=== PATIENT | female | born 1955 | race Caucasian/White ===

== ENCOUNTER → 2018-02-15 | Outpatient (CLI) | payer OTHER ==
[~2018-02-15] MED LIST: ATIVAN1 MG PO; COMPAZINE10 MG PO; CRESTOR20 MG PO; DECADRON4 MG PO; ERGOCALCIF50000 UNIT PO; IBUPROFEN 200200 M1 PO; MAGIC MOUTHWASH SW&SWALLOW; MEGESTROL ACETA40 MG PO; MINOCIN100 MG PO; NORCO 5-325 TA1 EACH PO; POTASSIUM20 PO; PROTONIX40 M4 PO; SYNTHROID125 MC1 PO; TRAZODONE HCL100 MG PO; VENLAFAXINE HC150 MG PO; VITAMIN D2000 UNIT PO; ZOFRAN ODT4 MG
--- NOTE | 2018-02-22 15:11 | PATH ---
[address] [address] PATHOLOGY RPT PROCEDURE Name: LORNA MALCOLM Room: [facility]#: [id number] Admission: 02/15/18 Date of : 55 Discharge: Report #: [id number] Path Case #: [id number] [facility] Accession Number: [id number] . 01 Material submitted: . LEFT BREAST TISSUE 2:00, 6 CMFN . 01 Clinical history: . 1.6 x 1.9 x 1.8 cm, 200 6 cm from nipple . 02 Diagnosis: Left breast tissue, 2:00, 6 cm from nipple, image guided core biopsies: - DUCTAL ADENOCARCINOMA, HIGH-GRADE, SPANNING 9 MM, WITH SUGGESTION OF MATRIX PRODUCTION (METAPLASTIC CARCINOMA). (SEE COMMENT) . Specimen type: Image guided core biopsies Tumor site: Left breast, 2:00, 6 cm from nipple Tumor quantitation: Approximately 90% of submitted tissues Histologic type: Ductal adenocarcinoma with suggestion of matrix production Histologic grade: High-grade (III of III) Tubules, nuclei and mitoses: 3, 3, 3 LVSI: Not identified Microcalcifications: Not identified Markers: Breast tumor profile pending Block: A3 [facility]02/18/2018 . 02 Comment: The tumor shows large aggregates of malignant cells present singly and in nests and frequently within a wispy, morel myxoid-appearing background. Non-neoplastic epithelial tissues do not show DCIS or LCIS and is associated with a prominent lymphoplasmacytic infiltrate. Properly controlled Alcian blue at pH 2.5 is performed on A2 and shows positivity in the myxoid material although positivity is also noted in non-neoplastic stroma and it suggests the presence of sialomucin or chondroitin sulfate. Properly-controlled immunohistochemical stains also performed on A2 highlight the neoplastic cells as follows, suggesting matrix production: . Keratin AE1/AE3: Positive E-cadherin: Positive Keratin Axel: Positive S100: Predominantly cytoplasmic and nuclear positive . Breast tumor profile studies are pending on A3 and will be the subject of an addendum report. . Preliminary findings relayed to Megan Ortega ([facility] Breast [place]igator) [place] [address] PATHOLOGY RPT PROCEDURE Name: LORNA MALCOLM Room: [facility] SHAHNAZ [place]#: [id number] Admission: 02/15/18 Date of : 55 Discharge: Report #: [id number] Path Case #: [id number] approximately 14:55 on 02/17/2018. Reviewed with Dr. Gomez Wei who agrees with the diagnosis. (ANDREINA:ananda 02/18/2018) . 02 Addendum: . Special studies report received from [facility], [address] [place] [address], [address], [place], [address], on case [id number], labeled with their number [id number], dated 02/22/2018. . Predictive/Prognostic Marker Analysis . Specimen 1: Lt Breast Specimen ID#: [id number] Absent/Negative Percent: 0 Intensity: Not Applicable Analysis Type: Computer Assisted Comment: Internal controls are present. . MT Absent/Negative Percent: 0 Intensity: Not Applicable Analysis Type: Computer Assisted Comment: Internal controls are present. . HER2 Not Over-Expressed Score: 1+ Analysis Type: Computer Assisted . KI67 High Proliferation Percent: 43.0% Analysis Type: Computer Assisted . Fixation Information Type of Fixative: 10% Neutral Buffered Formalin Time to Fixation: Immediate Duration of Fixation: Not Given . Codes: Reported CPT Code(s): 82635-71 X 4 . at [facility] Bonif[place] [address] PATHOLOGY RPT PROCEDURE Name: LORNA MALCOLM [id number] Admission: 02/15/18 Date of : 55 Discharge: Report #: [id number] Path Case #: [id number] Methodology The HER2 Receptor protein expression is analyzed using the [place] HER2 rabbit monoclonal antibody (clone [id number]). This assay is used for diagnostic determination of the HER2 protein over-expression in paraffin embedded, formalin fixed breast cancer tissue on the [place] Benchmark. The specimen is processed using a polymer detection system. The membrane staining of the tumor is determined either by manual score or image analysis. This antibody is intended for in vitro diagnostic use. The score is reported as per package insert; 0, 1+, 2+, and 3+. This test is used for clinical purposes. . A rabbit monoclonal antibody (clone SP1) that recognized the Estrogen Receptor is used to perform immunohistochemistry on routinely fixed (formalin) paraffin embedded tissue on the [place] Benchmark. The specimen is processed using a polymer detection system. The percentage of stained tumor nuclei is determined either manually or by image analysis. This test is intended for in vitro diagnostic use. This test is used for clinical purposes. . A rabbit monoclonal antibody (clone 1E2) that recognized the Progesterone Receptor is used to perform immunohistochemistry on routinely fixed (formalin) paraffin embedded tissue on the [place] Benchmark. The specimen is processed using a polymer detection system. The percentage of stained tumor nuclei is determined either manually or by image analysis. This test is intended for in vitro diagnostic use. This test is used for clinical purposes. . A rabbit monoclonal antibody (clone 30-9) that recognized Ki67 is used to perform immunohistochemistry on routinely fixed (formalin) paraffin embedded tissue on the [place] Benchmark. The specimen is processed using a polymer detection system. The percentage of stained tumor nuclei is determined either manually or by image analysis. This test is intended for in vitro diagnostic use. This test is used for clinical purposes. . Intended Use (when used as Prognostic/Predictive Markers): This antibody is intended for in vitro diagnostic (IVD) use. Estrogen Receptor (ER) (SP1) is a rabbit monoclonal antibody (IgG) that is intended for the qualitative detection of estrogen receptor (ER) antigen in sections of formalin-fixed, paraffin-embedded tissue. ER is a rabbit monoclonal antibody that recognizes human estrogen receptor alpha. . This antibody is intended for in vitro diagnostic (IVD) use. Progesterone Receptor (MT) (1E2) is a rabbit monoclonal antibody (IgG) that is intended for the qualitative detection of progesterone receptor (MT) antigen in sections of formalin fixed, paraffin embedded tissue. MT is a rabbit monoclonal antibody that recognizes the A and B forms of the human progesterone receptor. . This antibody is intended for in vitro diagnostic (IVD) use. HER2 (4B5) [place] [address] PATHOLOGY RPT PROCEDURE Name: LORNA MALCOLM Room: [facility]#: [id number] Admission: 02/15/18 Date of : 55 Discharge: Report #: [id number] Path Case #: [id number] a rabbit monoclonal antibody intended for the semi-quantitative detection of HER2 antigen in sections of formalin-fixed, paraffin embedded normal and neoplastic tissue. The HER2 protein is expressed as a level detectable by immunohistochemistry in up to 20 percent of adenocarcinomas from various sites. . This antibody is intended for in vitro diagnostic (IVD) use. Ki-67 (30-9) is a rabbit monoclonal antibody (IgG) directed against C-terminal portion of Ki-67 antigen. Staining for Ki-67 can be used to aid in assessing the proliferative activity of normal and neoplastic tissue. Ki-67 is a nuclear protein expressed in proliferating cells. During the cell cycle, the Ki-67 antigen is present in the G1, S, G2 and M phase but is absent in the G0 (quiescent phase). . . Disclaimer [facility] is a business unit of [employer] a wholly-owned subsidiary of [employer]. . Technical component performed by [facility]. at [address] [address] Torres Ni MD . Professional component performed by [facility] at [address] [place] [address] [address] [address] . Any image(s) that accompany this report is/are a account service representative image(s) only and should not be used to render a diagnosis. . HER2 testing at [employer] is performed in compliance with the 2013 updated ASCO/CAP Clinical Practice Guidelines and Recommendations for HER2 testing in Breast Cancer. If the result is EQUIVOCAL (2+), it must be confirmed by an alternative assay such as FISH or Dual SYL. REF: Gracy CREWS, et al. Recommendations for human epidermal growth factor receptor 2 testing in breast cancer: [place] Society of Clinical Oncology/College of [place] pathologists Clinical Practice Guideline Update. J Clin Oncol. 2013 May 13;31(31):4568-2798. . HER2 and ER/MT ASCO/CAP guidelines require fixation in neutral buffered formalin for a minimum of 6 and a maximum of 72 hours. Fixation times less than 6 hours may not adequately preserve cell proteins. Fixation times longer than 72 hours may cause excess cross-linking of proteins reducing the antigen available for staining. Either scenario can cause reduced staining; hence false negative results are possible and should be considered for these situations if the HER2 IHC score is less than 3+ or ER or MT is negative (no staining or <1% positive). It is recommended that specimens fixed longer than 72 hours with HER2 IHC scores less than 3+ be confirmed by HER2 FISH or Dual SYL. The time from biopsy/excision to [facility] [address] [place] [address] PATHOLOGY RPT PROCEDURE Name: LORNA MALCOLM Room: [facility] [place]#: [id number] Admission: 02/15/18 Date of : 55 Discharge: Report #: [id number] Path Case #: [id number] fixation in formalin (cold ischemic time) must be less than 1 hour. Time to fixation (cold ischemic time) greater than 1 hour should be interpreted with caution. HER2 testing, mainly HER2 by FISH, is particularly vulnerable since excessive cold ischemic time results in preferential loss of HER2 probe signals that may lead to false negative results. . The immunohistochemistry tests performed at [employer] were validated on tissue fixed in 10% neutral buffered formalin. The performance characteristics of the tests performed on tissue processed in other fixatives is not known. . SCORE STAINING PATTERN IN TUMOR CELLS INTERPRETATION RESULTS 0 No staining observed or incomplete, faint membrane staining in less than or equal to 10% of tumor cells. Negative 1+ Incomplete, faint membrane staining in greater than 10% of tumor cells. Negative 2+ Incomplete and/or weak/moderate circumferential membrane staining . in greater than 10% of the invasive tumor cells or complete, . circumferential, intense alternative assay staining in less than or equal to 10% of invasive tumor cells. Equivocal* *Must be confirmed by alternative assay (IHC/FISH/Dual SYL) 3+ Intense, complete membrane staining in greater than 10% of tumor cells. Positive . A complete copy of the report is on file. . Professional services performed by [facility] at [address], [place] [address]. Technical services performed by [employer]. at [address], [place] [address]. . (AMJ 02/22/2018) . AZJ/02/22/2018 Addendum Electronically Signed by Alban Canchola MD, Pathologist . 02 Electronically signed: . Alban Canchola MD, Pathologist NPI- [id number] . [address] [address] PATHOLOGY RPT PROCEDURE Name: LORNA MALCOLM Room: [facility].#: [id number] Admission: 02/15/18 Date of : 55 Discharge: Report #: [id number] Path Case #: [id number] Gross description: . Received in formalin labeled "Lorna Malcolm, left breast BX 200 6 cm FN," is a 1.4 x 0.8 x 0.2 cm aggregate of yellow-morel fibrofatty tissue cores. The specimen is submitted entirely in cassettes A1 through A3. The cold ischemic time is less than 1 minute. The total formalin fixation time is 36 hours and 26 minutes. (DAC; 02/16/2018) XDC/XDC . 02 Pathologist provided ICD-10: C50.912 . 02 CPT . 324620, F48697, I03106, 664622 Performed at: 01 [facility] [address] [place] [address] [address], [place], [place] [id number] MD Jan Stephenson MD Phone: [phone] Performed at: 02 [facility] [address] [place], [place] [id number] MD Alban Canchola MD Phone: [phone]
== END ==
LOC: M.ULTRA 07:44
DX: C50.912 Malignant neoplasm of unspecified site of left female breast (principal); Z88.8 Allergy status to other drugs, medicaments and biological substances; Z79.899 Other long term (current) drug therapy

== ENCOUNTER → 2018-03-01 | Outpatient (CLI) | payer OTHER ==
--- NOTE | 2018-03-01 14:24 | 2DMMODE ---
[place] [address] 2 D/M-MODE ECHOCARDIOGRAM Name: LORNA MALCOLM Room: [facility]#: [id number] Admission: 03/01/18 Attend Phys: Ronit Campbell MD Discharge: Date of : 55 Date of Service: 03/01/18 1423 Report #: [id number] THIS REPORT FOR: //name// APPROVED REPORT Study performed: 03/01/2018 10:18:49 EXAM: Comprehensive 2D, Doppler, and color-flow Echocardiogram Patient Location: Out-Patient Status: routine BSA: 1.85 HR: 82 bpm BP: 180/86 mmHg Rhythm: NSR Other Information Study Quality: Good Indications Pre-Chemo Breast cancer 2D Dimensions LVEF(%): 70.63 (>50%) IVSd: 11.47 (7-11mm) LVOT Diam: 19.85 (18-24mm) LVDd: 41.61 mm PWd: 9.19 (7-11mm) Ascending Ao: 28.42 (22-36mm) LVDs: 25.11 (25-40mm) Aortic Root: 30.03 mm Singh's LVEF: 70.63 % Volumes Left Atrial Volume (Systole) LA ESV Index: 12.00 mL/m2 Aortic Valve AoV Peak Christian.: 1.51 m/s AO Peak Gr.: 9.11 mmHg LVOT Max P.66 mmHg AO Mean Gr.: 4.03 mmHg LVOT Mean P.83 mmHg LVOT Max V: 1.29 m/s AO V2 VTI: 22.64 cm LVOT Mean V: 0.75 m/s ARTURO (VTI): 3.22 cm2 LVOT V1 VTI: 23.55 [place] [address] 2 D/M-MODE ECHOCARDIOGRAM Name: LORNA MALCOLM Room: [facility]#: [id number] Admission: 03/01/18 Attend Phys: Ronit Campbell MD Discharge: Date of : 55 Date of Service: 03/01/18 1423 Report #: [id number] E/A Ratio: 0.75 MV Decel. Time: 302.50 ms MV E Max Christian.: 0.53 m/s MV PHT: 87.73 ms MVA (PHT): 2.51 cm2 TDI E/Lateral E': 6.63 E/Medial E': 5.89 Medial E' Christian.: 0.09 m/s Lateral E' Christian.: 0.08 m/s Pulmonary Valve PV Peak Christian.: 1.28 m/s PV Peak Gr.: 6.59 mmHg Left Ventricle The left ventricle is normal size. There is normal LV segmental wall motion. There is normal left ventricular wall thickness. Left ventricular systolic function is normal. The left ventricular ejection fraction is within the normal range. LVEF is 65%. Grade I - abnormal relaxation pattern. Right Ventricle The right ventricle is normal size. The right ventricular systolic function is normal. Atria The left atrium size is normal. The right atrium size is normal. Aortic Valve Mild aortic valve sclerosis. No aortic regurgitation is present. There is no aortic valvular stenosis. Mitral Valve The mitral valve is normal in structure. Trace mitral regurgitation. No evidence of mitral valve stenosis. Tricuspid Valve The tricuspid valve is normal in structure. Trace tricuspid regurgitation. Unable to assess PA pressure. Pulmonic Valve The pulmonary valve is normal in structure. There is no pulmonic valvular regurgitation[place] [address] 2 D/M-MODE ECHOCARDIOGRAM Name: LORNA MALCOLM Room: [facility]#: [id number] Admission: 03/01/18 Attend Phys: Ronit Campbell MD Discharge: Date of : 55 Date of Service: 03/01/18 1423 Report #: [id number] The aortic root is normal in size. IVC is normal in size and collapses with >50% inspiration Pericardium There is no pericardial effusion. <Conclusion> The left ventricle is normal size. There is normal left ventricular wall thickness. Left ventricular systolic function is normal. The left ventricular ejection fraction is within the normal range. LVEF is 65%. The right ventricle is normal size. The left atrium size is normal. Mild aortic valve sclerosis. No aortic regurgitation is present. There is no aortic valvular stenosis. The mitral valve is normal in structure. IVC is normal in size and collapses with >50% inspiration There is no pericardial effusion. There is normal LV segmental wall motion. Grade I - abnormal relaxation pattern. <ELECTRONICALLY SIGNED> By: Usman Carranza MD, FACC 03/01/18 1423 1423 1423 Usman Carranza MD, FACC /INF
== END ==
LOC: M.CRD 09:42 → M.LAB 13:30 → M.MRI 14:30
DX: Z51.11 Encounter for antineoplastic chemotherapy (principal); C50.411 Malignant neoplasm of upper-outer quadrant of right female breast; C50.412 Malignant neoplasm of upper-outer quadrant of left female breast; I35.8 Other nonrheumatic aortic valve disorders

== ENCOUNTER → 2018-03-01 | Outpatient (CLI) | payer OTHER ==
[2018-03-01 14:27] LABS: CREATININE 1.2 mg/dL (0.6-1.3)
== END ==
LOC: M.LAB 10:00
PROVIDERS: Surgery
DX: C50.911 Malignant neoplasm of unspecified site of right female breast (principal); C50.912 Malignant neoplasm of unspecified site of left female breast

== ENCOUNTER → 2018-03-03 | Day surgery (SDC) | payer OTHER ==
[2018-03-03 10:06] LABS: HEMATOCRIT 40.8 % (37.0-47.0); HEMOGLOBIN 13.6 gm/dL (12.0-15.0); MCH 29.8 pg (26.0-34.0); MCHC 33.4 g/dL (28.0-37.0); MCV 89.3 fL (80.0-100.0); RBC 4.57 mil/uL (4.20-5.00); RDW-CV 13.3 % (10.5-14.5); WBC 6.2 thou/uL (4.0-11.0)
[2018-03-03 10:14] LABS: CALCIUM 8.4 mg/dL (8.5-10.1); CREATININE 1.1 mg/dL (0.6-1.3); POTASSIUM 4.4 mmol/L (3.5-5.1)
--- NOTE | 2018-03-04 17:30 | EKG ---
[place] [address] ELECTROCARDIOGRAM REPORT Name: LORNA MALCOLM Room: [facility]#: [id number] Admission: 03/03/18 Attend Phys: Ronit Campbell MD Discharge: Date of : 55 Report #: [id number] THIS REPORT FOR: //name// [facility] Test Date: 2018-03-03 Test Time: 09:51:32 Pat Name: LORNA MALCOLM Department: Room: Gender: F Senior Product Consultant: : 1955 Requested By: Ronit Campbell Order Number: [id number] Reading MD: Rai Mae Measurements Intervals [place] Rate: 79 P: 69 TN: 126 QRS: -50 QRSD: 94 T: 80 QT: 389 QTc: 447 Interpretive Statements Sinus rhythm Left anterior fascicular block Abnormal R-wave progression, late transition Borderline T abnormalities, anterior leads No previous ECG available for comparison Electronically Signed On 03-04-2018 17:29:53 CDT by Rai Mae [email or web address] <ELECTRONICALLY SIGNED> By: Rai Mae MD, [facility] 03/04/18 [id number] Rai Mae MD, [facility] /EPI
--- NOTE | 2018-03-17 16:21 | OP ---
[facility] [address] [place] [address] OPERATIVE REPORT Name: LORNA MALCOLM Room: [facility]#: [id number] Admission: 03/03/18 Attend Phys: Ronit Campbell MD Discharge: Date of : 55 Report #: [id number] THIS REPORT FOR: //name// CC: Maritza Campbell DATE OF SERVICE: 03/03/2018 PREOPERATIVE DIAGNOSIS: Left breast cancer. POSTOPERATIVE DIAGNOSIS: Left breast cancer. PROCEDURE: Right subclavian vein MediPort placement with fluoroscopic guidance. SURGEON: Ronit Campbell M.D. BUFF WHEEL FABRICATOR: TIM Lazar. COMPLICATIONS: None. FINDINGS: Tip of the catheter in the SVC. Bidirectional flow in the right subclavian vein. 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 The decision after visiting with Medical Oncology was that we should proceed with neoadjuvant chemotherapy. Risks and benefits for MediPort had been discussed with patient at her initial visit. She voiced understanding and agreed to proceed. DESCRIPTION OF PROCEDURE: The patient was brought to the operating room after informed consent had been obtained. She was placed under general anesthesia in the supine position, with both arms tucked and a shoulder roll placed in slight Trendelenburg position. Bilateral chest and neck were then prepped and draped in normal sterile manner. The right subclavian vein was accessed on the first attempt with the needle. The guidewire was passed. Fluoroscopy was then used to confirm placement in the SVC. Appropriate skin anesthesia with 0.5% Marcaine plain was then used to anesthetize the proposed pocket site. A skin incision was made in this area with a knife. This was deepened in the subcutaneous tissues using the Bovie electrocautery. Blunt dissection was used to create a pocket of adequate size to fit the MediPort device. Once this pocket was created under Seldinger technique, the dilator and guidewire were then passed over the wire under direct fluoroscopic visualization. The guidewire and dilator were then removed. The MediPort tubing was then introduced through the sheath. The break-away sheath was then removed. The [place] [address] OPERATIVE REPORT Name: LORNA MALCOLM Room: [facility]#: [id number] Admission: 03/03/18 Attend Phys: Ronit Campbell MD Discharge: Date of : 55 Report #: [id number] appropriate length. It was then affixed to the MediPort device and placed in the created pocket. The port was then aspirated and flushed with injectable saline without difficulty. The deep dermal layers were then closed with interrupted 3-0 Vicryl suture. Skin was closed with 4-0 Monocryl in a subcuticular manner. The accessing apparatus was then inserted. The port and tubing were then locked with approximately 7 mL of the heparin solution. Dermabond was applied to the incision and sterile dressings were used to cover the port. The patient tolerated the procedure well. Post-procedure chest x-ray will be performed in recovery room. <ELECTRONICALLY SIGNED> By: Ronit Campbell MD 03/17/18 1621 1113 [id number] Campbell MD /nt
== END | disposition home or self-care (01) ==
LOC: M.SUR 07:03
PROVIDERS: Surgery
DX: Z45.2 Encounter for adjustment and management of vascular access device (principal); C50.412 Malignant neoplasm of upper-outer quadrant of left female breast; E78.5 Hyperlipidemia, unspecified; E03.9 Hypothyroidism, unspecified; F41.9 Anxiety disorder, unspecified; F32.9 Major depressive disorder, single episode, unspecified; Z86.718 Personal history of other venous thrombosis and embolism; Z79.01 Long term (current) use of anticoagulants; Z79.899 Other long term (current) drug therapy; Z79.891 Long term (current) use of opiate analgesic; Z88.8 Allergy status to other drugs, medicaments and biological substances; Z82.49 Family history of ischemic heart disease and other diseases of the circulatory system; Z80.1 Family history of malignant neoplasm of trachea, bronchus and lung; Z80.3 Family history of malignant neoplasm of breast

== ENCOUNTER → 2018-03-10 | Outpatient (CLI) | payer OTHER ==
--- NOTE | 2018-03-14 15:37 | CON ---
[address] [address] CONSULTATION Name: MALCOLMLORNA S Room: [facility]#: [id number] Admission: 03/10/18 Attend Phys: Oseas Son MD Discharge: Date of : 55 Report #: [id number] THIS REPORT FOR: //name// CC: Oseas Cano MD DATE OF SERVICE: 03/10/2018 [facility] REFERRING PHYSICIANS: Include Yrn Cano MD as well as Ronit Campbell MD and Maritza Goodwin MD. PRIMARY SITE AND HISTOPATHOLOGY: The patient is receiving chemotherapy under the guidance of Dr. Cano for a high-grade ductal adenocarcinoma with suggestion of metaplastic carcinoma. HISTORY OF PRESENT ILLNESS: The patient is a 63-year-old woman who palpated a lesion around the 2 o'clock position of the left breast. Prior to that, she did not have mammograms for about 5 years and she ultimately had a mammogram performed on 02/05/2018, which revealed a suspicious hypoechoic nodule in the left breast that measured 1.6 cm x 1.3 cm. It was at the 2 o'clock position. The patient underwent a biopsy of this area and it was a ductal adenocarcinoma. It was high-grade, and measured about 0.9 cm and that was consistent with metaplastic carcinoma. It was estrogen receptor negative, progesterone receptor negative, and HER-2/honorio negative. The patient went on to have an MRI of the breast on 03/01/2018, which revealed a normal right breast with no evidence of a malignancy involving the right breast. She had a mass in the upper outer portion of the left breast that measured 2.7 cm x 1.3 cm x 2.6 cm. The axillary regions were normal bilaterally. She denied having any bleeding from the nipple. Her medical oncologist, Dr. Cano, appeared to be treating her with dose-dense Adriamycin and Cytoxan. PAST MEDICAL HISTORY AND PAST SURGICAL HISTORY: The patient has had carpal tunnel surgery in 2003, and was treated for a fractured ankle in 2002. She also had a gastric bypass. She is hypothyroid. She has hypercholesterolemia and is also treated for depression. MEDICATIONS: Effexor, 125 mcg of levothyroxine per day, 20 mg of rosuvastatin per day, and 100 mg of trazodone per day. ALLERGIES: KEFLEX, WHICH CAUSES A RASH. OBSTETRICS/GYNECOLOGY: Menarche at age 12, menopause at age 49. She is 1, [address] [place] [address] CONSULTATION Name: LORNA MALCOLM Room: [facility] Katrina#: [id number] Admission: 03/10/18 Attend Phys: Oseas Son MD Discharge: Date of : 55 Report #: [id number] FAMILY HISTORY: Mother had breast cancer, maternal grandmother had breast cancer, maternal aunt had breast cancer. SOCIAL HISTORY: The patient is retired. She is . Ethanol: She drinks 2-3 glasses of alcohol containing drinks per week. Cigarettes: She smoked about a half pack of cigarettes for 2 years and quit smoking about 42 years ago. REVIEW OF SYSTEMS: GENERAL: The patient denied having any fevers or chills. SKIN: The patient denied having any color changes or itching. LYMPH NODES: She denied having enlarged or painful glands in the neck. ENDOCRINE: The patient had no complaints of increased thirst. HEMATOLOGY/IMMUNOLOGY: The patient denied having any anemia. MUSCULOSKELETAL: The patient has arthritis in her back. HEAD AND NECK: She has sinus headaches chronically, which she attributes to allergies. RESPIRATORY: She denied having shortness of breath. CARDIOVASCULAR: She denied having palpitations. GASTROINTESTINAL: She had nausea with chemotherapy and takes antiemetics for that issue NEUROLOGIC: She denied having any focal weakness. PHYSICAL EXAMINATION: With my nurse, Devi Quintero, present: VITAL SIGNS: Height 5 feet 2 inches, weight 180.4 pounds, blood pressure 123/74, pulse 97, oxygen saturation 98%, respirations 16. LYMPH NODES: The patient had no palpable cervical, supraclavicular or axillary lymphadenopathy. GENERAL: The patient was alert, oriented, and in no acute distress. EYES: Pupils were equal, round, reactive to light and accommodation. Extraocular movement were intact. HEART: Had a regular rate and rhythm without murmur. LUNGS: were clear to auscultation. BREASTS: Left breast had a firm area in the 2 o'clock position measuring about 1.5 cm. There were no other suspicious palpable masses in the left breast and no other suspicious palpable masses in the right breast. ABDOMEN: Not tender. Spleen was not palpable. Liver was at the costal margin. EXTREMITIES: No clubbing, cyanosis or edema. NEUROLOGIC: Cranial nerves II to XII were intact. Sensation was intact. She had 5/5 strength in her extremities. ASSESSMENT AND PLAN: The patient is, at this point, receiving neoadjuvant chemotherapy. I told her that6 her local treatment options would be breast conservation therapy, which would usually include a lumpectomy and lymph node sampling and radiation therapy, versus mastectomy. In the instance of mastectomy, radiation therapy would only be offered in patients that have high risk features for local recurrence such such as lymph nodes that are involved with cancer, positive surgical margins, and/or [place] [address] CONSULTATION Name: LORNA MALCOLM Room: [facility].#: [id number] Admission: 03/10/18 Attend Phys: Oseas Son MD Discharge: Date of : 55 Report #: [id number] larger than 5 cm. The efficacy of breast conservation therapy after neoadjuvant chemotherapy can be found in the article where Dr. Lovett was one of the authors. It was a retrospective review of 340 patients treated with neoadjuvant chemotherapy and breast conservation therapy and had acceptable low rates of local failure rates of about 5% in 5 years. So, the patient was given a copy of the radiation therapy consent form to take with her. She was asked to schedule a follow up appointment to see me in about 2 months, and, at that point we can see where she is with her systemic therapy and if she made decisions about what type of local treatment to pursue. In terms of long-term results with mastectomy versus breast conservation therapy, the NSABP B-06 study randomized patients with early breast cancer between total mastectomy versus lumpectomy alone versus lumpectomy and radiation therapy. At 20 years followup, there was no significant difference in terms of overall survival between the three treatment groups. In the breast conservation group, the addition of radiation therapy to lumpectomy reduced the local failure rate from 39% to 14%. As mentioned earlier, I asked the patient to follow up with me in about 2 months. Thank you for this consult. <ELECTRONICALLY SIGNED> By: Oseas Son MD 03/14/18 1537 1057 [id number] Son MD /nt
== END ==
LOC: M.RTH 04:26
DX: Z51.11 Encounter for antineoplastic chemotherapy (principal); Z85.3 Personal history of malignant neoplasm of breast

== ENCOUNTER → 2018-03-12 | Outpatient (CLI) | payer OTHER | LOC: M.ULTRA 08:03 | DX: C50.212 Malignant neoplasm of upper-inner quadrant of left female breast (principal); E03.9 Hypothyroidism, unspecified; E78.00 Pure hypercholesterolemia, unspecified ==

== ENCOUNTER → 2018-04-12 | Outpatient (CLI) | payer OTHER | LOC: M.ULTRA 09:13 | DX: C50.412 Malignant neoplasm of upper-outer quadrant of left female breast (principal); E03.9 Hypothyroidism, unspecified; E78.5 Hyperlipidemia, unspecified; Z17.1 Estrogen receptor negative status [ER-] ==

== ENCOUNTER 2018-04-19 11:28 | Inpatient (IN) | payer OTHER ==
[~2018-04-19] VITALS: Ht 157.5 cm; Wt 79.4 kg
[~2018-04-19 11:28] MED LIST changes: -ATIVAN1 MG PO; -COMPAZINE10 MG PO; -DECADRON4 MG PO; -ERGOCALCIF50000 UNIT PO; -IBUPROFEN 200200 M1 PO; -MAGIC MOUTHWASH SW&SWALLOW; -MEGESTROL ACETA40 MG PO; -POTASSIUM20 PO; -PROTONIX40 M4 PO; -ZOFRAN ODT4 MG
[2018-04-19 11:36] VITALS: BP 110/46
[2018-04-19 12:02] LABS: HEMATOCRIT 25.5 % (37.0-47.0); HEMOGLOBIN 8.7 gm/dL (12.0-15.0); MCH 29.1 pg (26.0-34.0); MCHC 34.3 g/dL (28.0-37.0); MCV 84.9 fL (80.0-100.0); MPV 7.2 fl. (7.2-11.1); NUCLEATED RBCS 0 /100WBC; PLATELET COUNT* 375 thou/uL (150-400); RDW-CV 12.7 % (10.5-14.5)
[2018-04-19 12:11] LABS: ANION GAP 7 mmol/L (7-16); APTT 27.5 Seconds (25.0-31.3); BUN 11 mg/dL (7-18); CHLORIDE 102 mmol/L (98-107); CO2 24 mmol/L (21-32); CREATININE 1.2 mg/dL (0.6-1.3); GLUCOSE 112 mg/dL (70-99); INR 1.2; PROTIME 11.8 Seconds (9.20-11.50); SODIUM 133 mmol/L (136-145)
[2018-04-19 12:15] LABS: POTASSIUM 2.9 mmol/L (3.5-5.1)
[2018-04-19 12:18] LABS: URINE BILIRUBIN NEGATIVE (Negative); URINE BLOOD 3+ (Negative); URINE CLARITY CLEAR; URINE COLOR YELLOW; URINE GLUCOSE-RANDOM NEGATIVE (Negative); URINE KETONES TRACE (Negative); URINE LEUKOCYTES-REFLEX NEGATIVE (Negative); URINE NITRITE-REFLEX NEGATIVE (Negative); URINE PROTEIN NEGATIVE (Negative); URINE SPECIFIC GRAVITY <= 1.005 (1.005-1.030); URINE UROBILINOGEN 0.2 E.U./dl (0.2-1.0)
[2018-04-19] MEDS ORDERED: DECADRON4 MG PO (12:18)
[2018-04-19] MEDS ORDERED: MAGIC MOUTHWASH SW&SWALLOW (12:19)
[2018-04-19] MEDS ORDERED: IBUPROFEN 200200 M1 PO (12:19)
[2018-04-19] MEDS ORDERED: ATIVAN1 MG PO (12:20)
[2018-04-19] MEDS ORDERED: POTASSIUM20 PO ×2 (12:20)
[2018-04-19 12:21] LABS: ALBUMIN 2.6 g/dL (3.4-5.0); ALKALINE PHOSPHATASE 98 U/L (46-116); NT-PRO BRAIN NAT PEPTIDE 563 pg/mL (<300); SGOT 17 U/L (15-37); SGPT 9 U/L (30-65); TOTAL BILIRUBIN 0.3 mg/dL (<0.1-1.0); TOTAL PROTEIN 6.2 g/dL (6.4-8.2); TROPONIN-I LEVEL <0.06 ng/mL (<0.06)
[2018-04-19] MEDS ORDERED: ERGOCALCIF50000 UNIT PO (12:21)
[2018-04-19] MEDS ORDERED: COMPAZINE10 MG PO (12:22)
[2018-04-19] MEDS ORDERED: ZOFRAN ODT4 MG (12:22)
[2018-04-19 12:25] LABS: BACTERIA-REFLEX 1-9 Few /HPF (None Seen); CASTS None Seen /LPF (None Seen); CRYSTALS None Seen /LPF (None Seen); SQUAMOUS 4-10 Moderate /LPF (0-3); URINE RBC >20 Many /HPF (0-2); URINE WBC-REFLEX 0-5 Rare /HPF (0-5)
[2018-04-19 12:44] LABS: ABSOLUTE BASOPHILS 0.4 thou/uL (0.0-0.2); ABSOLUTE LYMPHOCYTES 0.4 thou/uL (0.8-5.3); ABSOLUTE MONOCYTES 1.4 thou/uL (0.0-1.2); ABSOLUTE NEUTROPHILS 15.8 thou/uL (1.6-8.1); PLATELET ESTIMATE ADEQUATE
--- NOTE | 2018-04-19 14:05 | EKG ---
[place] [address] ELECTROCARDIOGRAM REPORT Name: LORNA MALCOLM Room: [place] [address] ADM IN .R.#: [id number] Admission: 04/19/18 Attend Phys: Consuelo Bello MD Discharge: Date of : 55 Report #: [id number] THIS REPORT FOR: //name// [facility] ED Test Date: 2018-04-19 Test Time: 11:44:01 Pat Name: LORNA MALCOLM Department: Room: [facility] Gender: F Director Loan: Rigo CORTES : 1955 Requested By: Michael Elizalde Order Number: [id number] MD: Shant Rapp Measurements Intervals [place] Rate: 96 P: 58 PA: 118 QRS: -44 QRSD: 91 T: 89 QT: 376 QTc: 476 Interpretive Statements Sinus rhythm Borderline short PA interval Left anterior fascicular block Low voltage, precordial leads Abnormal R-wave progression, early transition Minimal ST depression, lateral leads Baseline wander in lead(s) V2 Compared to ECG 03/03/2018 09:51:32 no change Electronically Signed On 04-19-2018 14:05:30 CDT by Shant Rapp [email or web address] <ELECTRONICALLY SIGNED> By: Shant Rapp MD, FACC 04/19/18 1405 1144 1144 Shant Rapp MD, [facility] /EPI
[2018-04-19 15:03] VITALS: BP 115/62
[2018-04-19 19:45] VITALS: BP 100/41
[2018-04-20] VITALS: BP 86/39
[2018-04-20 04:00] VITALS: BP 85/47
[2018-04-20 06:24] LABS: HEMOGLOBIN 7.2 gm/dL (12.0-15.0); MCH 29.5 pg (26.0-34.0); MCHC 34.1 g/dL (28.0-37.0); MCV 86.4 fL (80.0-100.0); RBC 2.44 mil/uL (4.20-5.00); RDW-CV 12.9 % (10.5-14.5); WBC 9.9 thou/uL (4.0-11.0)
[2018-04-20 07:39] LABS: CALCIUM 7.5 mg/dL (8.5-10.1); CREATININE 1.2 mg/dL (0.6-1.3); MAGNESIUM 1.6 mg/dL (1.8-2.4); POTASSIUM 3.2 mmol/L (3.5-5.1); TOTAL BILIRUBIN 0.2 mg/dL (<0.1-1.0)
[2018-04-20 08:00] VITALS: BP 87/36
[2018-04-20 12:00] VITALS: BP 80/46
[2018-04-20 16:00] VITALS: BP 119/54
[2018-04-20 17:59] LABS: HEMATOCRIT 20.7 % (37.0-47.0); MCHC 33.7 g/dL (28.0-37.0); MCV 86.2 fL (80.0-100.0); MPV 7.7 fl. (7.2-11.1); NUCLEATED RBCS 0 /100WBC; PLATELET COUNT* 319 thou/uL (150-400); RDW-CV 13.3 % (10.5-14.5); WBC 9.2 thou/uL (4.0-11.0)
[2018-04-20 18:24] LABS: % SATURATION 13 % (20-39); IRON 14 ug/dL (50-175)
[2018-04-20 18:39] LABS: ABSOLUTE LYMPHOCYTES 0.3 thou/uL (0.8-5.3); ABSOLUTE MONOCYTES 1.1 thou/uL (0.0-1.2); ABSOLUTE NEUTROPHILS 7.8 thou/uL (1.6-8.1)
[2018-04-20 18:40] LABS: OVALOCYTES Occasional; PLATELET ESTIMATE ADEQUATE
[2018-04-20 18:41] LABS: ANISOCYTOSIS Occasional
[2018-04-20 19:35] VITALS: BP 103/52
[2018-04-20 20:16] LABS: INFLUENZA A ANTIGEN None Detected (None Detect); INFLUENZA B ANTIGEN None Detected (None Detect)
[2018-04-21 00:50] VITALS: BP 121/54
[2018-04-21 02:07] LABS: ABSOLUTE LYMPHOCYTES 0.5 thou/uL (0.8-5.3); ABSOLUTE MONOCYTES 1.7 thou/uL (0.0-1.2); ABSOLUTE NEUTROPHILS 6.3 thou/uL (1.6-8.1); BASOPHILS 0.6 %; EOSINOPHILS 0.2 %; HEMATOCRIT 21.2 % (37.0-47.0); HEMOGLOBIN 7.1 gm/dL (12.0-15.0); LYMPHOCYTES 5.4 %; MCH 28.9 pg (26.0-34.0); MCHC 33.5 g/dL (28.0-37.0); MCV 86.1 fL (80.0-100.0); MONOCYTES 19.6 %; MPV 7.9 fl. (7.2-11.1); NUCLEATED RBCS 0 /100WBC; PLATELET COUNT* 324 thou/uL (150-400); POLYS 74.2 %; RBC 2.46 mil/uL (4.20-5.00); RDW-CV 13.2 % (10.5-14.5); WBC 8.5 thou/uL (4.0-11.0)
[2018-04-21 04:36] VITALS: BP 100/44
[2018-04-21 07:20] VITALS: BP 96/52
[2018-04-21 09:46] LABS: ABSOLUTE BASOPHILS 0.1 thou/uL (0.0-0.2); ABSOLUTE LYMPHOCYTES 0.5 thou/uL (0.8-5.3); ABSOLUTE MONOCYTES 1.2 thou/uL (0.0-1.2); ABSOLUTE NEUTROPHILS 6.4 thou/uL (1.6-8.1); BASOPHILS 0.7 %; EOSINOPHILS 0.2 %; HEMATOCRIT 22.3 % (37.0-47.0); HEMOGLOBIN 7.5 gm/dL (12.0-15.0); LYMPHOCYTES 6.4 %; MCH 29.4 pg (26.0-34.0); MCHC 33.8 g/dL (28.0-37.0); MCV 86.7 fL (80.0-100.0); MONOCYTES 14.7 %; MPV 8.2 fl. (7.2-11.1); NUCLEATED RBCS 0 /100WBC; PLATELET COUNT* 331 thou/uL (150-400); RBC 2.57 mil/uL (4.20-5.00); RDW-CV 13.3 % (10.5-14.5); WBC 8.3 thou/uL (4.0-11.0)
[2018-04-21 12:13] LABS: CREATININE 1.2 mg/dL (0.6-1.3); POTASSIUM 3.6 mmol/L (3.5-5.1)
[2018-04-21 12:55] VITALS: BP 95/53
[2018-04-21 17:18] VITALS: BP 111/59
[2018-04-21 18:36] LABS: HEMATOCRIT 23.6 % (37.0-47.0); MCH 29.5 pg (26.0-34.0); MCV 86.7 fL (80.0-100.0); MPV 8.3 fl. (7.2-11.1); NUCLEATED RBCS 0 /100WBC; PLATELET COUNT* 367 thou/uL (150-400); RBC 2.72 mil/uL (4.20-5.00); RDW-CV 13.5 % (10.5-14.5); WBC 8.3 thou/uL (4.0-11.0)
[2018-04-21 20:20] VITALS: BP 98/26
[2018-04-21 21:49] LABS: ABSOLUTE LYMPHOCYTES 1.2 thou/uL (0.8-5.3); ABSOLUTE MONOCYTES 1.3 thou/uL (0.0-1.2); ABSOLUTE NEUTROPHILS 5.8 thou/uL (1.6-8.1); ATYPICAL LYMPHS 2 %; PLATELET ESTIMATE ADEQUATE; TOXIC GRANULATION 1+
[2018-04-21 21:50] LABS: ANISOCYTOSIS Occasional; CLUMPED PLTS FEW; POLYCHROMASIA Occasional
[2018-04-22] VITALS: BP 109/65
[2018-04-22 04:24] LABS: HEMATOCRIT 21.8 % (37.0-47.0); HEMOGLOBIN 7.3 gm/dL (12.0-15.0); MCHC 33.7 g/dL (28.0-37.0); MCV 86.2 fL (80.0-100.0); MPV 8.5 fl. (7.2-11.1); RBC 2.52 mil/uL (4.20-5.00); RDW-CV 13.4 % (10.5-14.5); WBC 6.8 thou/uL (4.0-11.0)
[2018-04-22 04:36] LABS: ALBUMIN 1.9 g/dL (3.4-5.0); CALCIUM 8.1 mg/dL (8.5-10.1); CREATININE 1.1 mg/dL (0.6-1.3); MAGNESIUM 1.6 mg/dL (1.8-2.4); POTASSIUM 4.2 mmol/L (3.5-5.1); TOTAL BILIRUBIN 0.1 mg/dL (<0.1-1.0); TOTAL PROTEIN 5.1 g/dL (6.4-8.2)
[2018-04-22 08:15] VITALS: BP 120/58
--- NOTE | 2018-04-22 12:46 | CON ---
[address] [address] CONSULTATION Name: LORNA MALCOLM Room: [address] IN .R.#: [id number] Admission: 04/19/18 Attend Phys: Consuelo Bello MD Discharge: Date of : 55 Report #: [id number] THIS REPORT FOR: //name// CC: Maritza Bello DATE OF SERVICE: 04/21/2018 INFECTIOUS DISEASE CONSULTATION ATTENDING PHYSICIAN: Dr. Bello. REASON FOR EVALUATION: Positive blood culture. HISTORY OF PRESENT ILLNESS: Chart reviewed, the patient examined. This is a 63-year-old woman with a history of breast cancer diagnosed within the last few months, who has been on chemotherapy. She presented with progressive weakness, also has had some degree of fever, nausea with emesis and diarrhea. She was evaluated and found to be hypotensive and hypokalemic. Initial chest x-ray was unrevealing. Lactic acid of 0.7. Urinalysis 0-5 white cells and was leukocytotic at 18,000. At the time of evaluation, blood cultures were collected, now 1 out of 2 with growth of gram-positive rods. She was empirically started on antimicrobials, cefepime. She is not overtly toxic at this point and generally lucid. ALLERGIES: CEPHALEXIN, WHICH CAUSES A RASH. CURRENT MEDICATIONS: Include ergocalciferol, dexamethasone, loratadine, trazodone, atorvastatin, cefepime, cholecalciferol, levothyroxine, venlafaxine, megestrol, ibuprofen, p.r.n. analgesics and antiemetics. PAST MEDICAL HISTORY: Hypothyroidism, depression, anxiety, hyperlipidemia, hypercoagulable state and breast cancer with history of bariatric surgery. SOCIAL HISTORY: Former smoker, past ethanol use. FAMILY HISTORY: Noncontributory. REVIEW OF SYSTEMS: As above. PHYSICAL EXAMINATION: GENERAL: She appears somewhat chronically ill, undernourished. She is in ubil-[id number] distress. VITAL SIGNS: Temperature 97.8, pulse 69, respirations 17 and blood pressure is 95/53. SKIN: Warm, [place] [address] CONSULTATION Name: LORNA MALCOLM Room: [address]#: [id number] Admission: 04/19/18 Attend Phys: Consuelo Bello MD Discharge: Date of : 55 Report #: [id number] HEENT: Otherwise, unremarkable. NECK: Supple. LUNGS: Diminished overall, few scattered crackles at the bases. HEART: Regular. I do not appreciate a murmur. ABDOMEN: Soft, nontender and nondistended. No flank tenderness. GENITOURINARY: Deferred. RECTAL: Deferred. LABORATORY DATA: Electrolytes: Sodium 140, potassium 3.6, chloride 111, bicarbonate 21, BUN and creatinine 10 and 1.2, anion gap of 8 and estimated GFR of 45. Blood cultures, as described above, 1 out of 2 with gram-positive rods. Most recent CBC, white count of 8.3, H and H of 7.5 and 22.3 and platelets of 331,000. Initial chest x-ray was unremarkable. Lactic acid 0.7. Urinalysis unremarkable. Influenza antigen was negative. ASSESSMENT AND PLAN: Positive blood culture with positive rods. We will await results. We will continue empiric antimicrobial therapy. She is likely some degree of immunosuppressed. I am not sure I can see a pyogenic focus of infection at this point. She has got no long-term indwelling catheter and we will see how she does over the course of the next 24-48 hours, pending the results. If would worsen, likely would add vancomycin that will give us good broad-spectrum gram-positive coverage. Dysuria, I guess, is the possibility as well, although we will definitely have an identification soon. <ELECTRONICALLY SIGNED> By: Gerardo Montgomery MD 04/22/18 1246 1558 0041Jotom Montgomery MD /nt
[2018-04-22 16:00] VITALS: BP 135/78
[2018-04-22] MEDS ORDERED: MEGESTROL ACETA40 MG PO (21:16)
[2018-04-22 21:30] VITALS: BP 115/75
[2018-04-23 05:52] LABS: HEMATOCRIT 23.1 % (37.0-47.0); HEMOGLOBIN 7.8 gm/dL (12.0-15.0); MCH 29.2 pg (26.0-34.0); MCHC 33.8 g/dL (28.0-37.0); MCV 86.5 fL (80.0-100.0); MPV 8.6 fl. (7.2-11.1); RBC 2.66 mil/uL (4.20-5.00); RDW-CV 12.9 % (10.5-14.5); WBC 6.8 thou/uL (4.0-11.0)
[2018-04-23 06:04] LABS: CALCIUM 8.4 mg/dL (8.5-10.1); CREATININE 1.1 mg/dL (0.6-1.3); MAGNESIUM 1.6 mg/dL (1.8-2.4); POTASSIUM 4.3 mmol/L (3.5-5.1)
[2018-04-23] MEDS ORDERED: PROTONIX40 M4 PO (06:47)
[2018-04-23 08:05] VITALS: BP 106/58
[2018-04-23 11:12] VITALS: BP 106/58
--- NOTE | 2018-04-26 11:21 | CON ---
[address] [address] CONSULTATION Name: LORNA MALCOLM Room: [address] IN ..#: [id number] Admission: 04/19/18 Attend Phys: Consuelo Bello MD Discharge: 04/23/18 Date of : 55 Report #: [id number] THIS REPORT FOR: //name// CC: Maritza Bello DATE OF SERVICE: 04/21/2018 HISTORY OF PRESENT ILLNESS: The patient is a pleasant 63-year-old female patient with past medical history significant for triple negative breast cancer who started with chemotherapy, who presented with fever, chills, and weakness. GI service has been consulted for evaluation of her anemia. The patient reports that she has not noticed any change in her bowel habits in the last few weeks or months. She denies any hematemesis, hematochezia, difficulty swallowing, abdominal pain, melena or bright red blood per rectum. PAST MEDICAL HISTORY: Significant for breast cancer, hypothyroidism and hyperlipidemia. PAST SURGICAL HISTORY: Significant for left ankle fracture, bilateral carpal tunnel surgery, and history of gastric bypass. FAMILY HISTORY: No family history of colorectal cancer. SOCIAL HISTORY: The patient quit smoking, denies recreational drug use and denies any significant alcohol use. REVIEW OF SYSTEMS: Comprehensive 10-point review of systems is negative except for what is mentioned here. PHYSICAL EXAMINATION: VITAL SIGNS: Temperature 36.6, pulse rate 81, blood pressure 111/59, respirations 18. GENERAL: The patient is alert, awake, oriented x 3. HEENT: Mucous membranes are moist. There is no congestion. NECK: Supple. There is no supraclavicular lymphadenopathy. HEART: Regular rate and rhythm. S1, S2 present. LUNGS: Clear to auscultation bilaterally. ABDOMEN: Soft. There is no distention, no tenderness, no guarding or rigidity. EXTREMITIES: Warm and well perfused. There is no edema. NEUROLOGIC: There is no focal neurological deficit. LABORATORY DATA: Hemoglobin 8.0, hematocrit 23.6, WBC count 8.3, platelet count 367. Sodium 140, potassium 3.6, chloride 111, bicarbonate 21, BUN 10, creatinine 1.2. [place]R 1.2. [place] [address] CONSULTATION Name: LORNA MALCOLM Room: [address]#: [id number] Admission: 04/19/18 Attend Phys: Consuelo Bello MD Discharge: 04/23/18 Date of : 55 Report #: [id number] ASSESSMENT AND PLAN: This is a very pleasant 63-year-old female with past medical history significant for triple negative breast cancer status post chemotherapy who is presenting with weakness, fever and chills and was found to have anemia. The patient appears to have low iron saturation, but also low TIBC. I suspect there is a mixed picture of both iron deficiency and anemia of chronic disease. Reticulocyte count, LDH, and haptoglobin have been ordered to rule out hemolysis. We will follow up on this. I also suspect that the iron deficiency is in part related to her bariatric surgery, which frequently causes malabsorption due to the bypass of the duodenum, which is the primary site for absorption of iron. We will consider endoscopy based on the results of the hemolysis labs. <ELECTRONICALLY SIGNED> By: Raj Morris MD 04/26/18 1121 [id number] Morris MD /nt
== END 2018-04-23 14:02 | disposition home or self-care (01) | DRG 872 ==
LOC: M.ERS 11:28 → M.2W 12:45 → M.TBA-ER 12:45 → M.2W 14:54 → M.ORTHSURG 04-21 16:18
PROVIDERS: Family Medicine; Internal Medicine Hematology & Oncology; ADMIT Internal Medicine
DX: A41.9 Sepsis, unspecified organism (principal); E44.0 Moderate protein-calorie malnutrition; D68.59 Other primary thrombophilia; E86.0 Dehydration; I95.9 Hypotension, unspecified; E03.9 Hypothyroidism, unspecified; F32.9 Major depressive disorder, single episode, unspecified; F41.9 Anxiety disorder, unspecified; E78.5 Hyperlipidemia, unspecified; D50.9 Iron deficiency anemia, unspecified; C50.912 Malignant neoplasm of unspecified site of left female breast; E87.6 Hypokalemia; Z88.8 Allergy status to other drugs, medicaments and biological substances; Z98.84 Bariatric surgery status; Z87.891 Personal history of nicotine dependence; Z87.81 Personal history of (healed) traumatic fracture; Z68.32 Body mass index [BMI] 32.0-32.9, adult

== ENCOUNTER → 2018-05-19 | Outpatient (CLI) | payer OTHER ==
[~2018-05-19] MED LIST changes: +ATIVAN1 MG PO; +COMPAZINE10 MG PO; +DECADRON4 MG PO; +ERGOCALCIF50000 UNIT PO; +IBUPROFEN 200200 M1 PO; +MAGIC MOUTHWASH SW&SWALLOW; +MEGESTROL ACETA40 MG PO; +POTASSIUM20 PO; +PROTONIX40 M4 PO; +ZOFRAN ODT4 MG
[2018-05-19 08:30] VITALS: BP 106/65; BP 115/61; BP 98/80
[2018-05-19 10:48] VITALS: BP 106/65; BP 110/69; BP 111/72; BP 118/72
--- NOTE | 2018-05-19 13:38 | NUR ---
Pt arrived at 0812 for transfusion of 2 units of blood. Seated self in recliner and given warm blankets. Pre-meds were given at 0825. Accessed her port-a-cath with out difficulty and patient tolerated well. Reviewed medical history and medication update. First unit of blood started at 0835 and completed at 1032. Breakfast and was served. Lasix given between 1-2nd unit of blood at 1037. 2nd unit of blood started at 1052. Lunch served at 1230. Transfusion completed at 1300. De-accessed port-a-cath after heparin flush. Pt tolerated transfusions well with no s/sx of blood reaction. Pt was given the post blood take home instructions and discussed with pt and her daughter. Pt ambulated out for home with daughter at 1338.
== END ==
LOC: M.INFUS 08:00
DX: D64.81 Anemia due to antineoplastic chemotherapy (principal); T45.1X5A Adverse effect of antineoplastic and immunosuppressive drugs, initial encounter; C50.919 Malignant neoplasm of unspecified site of unspecified female breast

== ENCOUNTER 2018-05-26 09:18 | Emergency (ER) | payer OTHER ==
[~2018-05-26] VITALS: Ht 157.5 cm; Wt 70.3 kg
[2018-05-26 09:50] LABS: HEMATOCRIT 32.3 % (37.0-47.0); MCH 30.4 pg (26.0-34.0); MCHC 34.1 g/dL (28.0-37.0); MCV 89.2 fL (80.0-100.0); MPV 9.1 fl. (7.2-11.1); NUCLEATED RBCS 0 /100WBC; PLATELET COUNT* 75 thou/uL (150-400); RBC 3.62 mil/uL (4.20-5.00); RDW-CV 15.6 % (10.5-14.5)
[2018-05-26 09:53] LABS: CALCIUM 8.8 mg/dL (8.5-10.1); CREATININE 0.9 mg/dL (0.6-1.3); POTASSIUM 3.5 mmol/L (3.5-5.1)
[2018-05-26 09:56] LABS: WBC 0.6 thou/uL (4.0-11.0)
[2018-05-26 09:58] LABS: ALBUMIN 3.1 g/dL (3.4-5.0); TOTAL BILIRUBIN 0.6 mg/dL (<0.1-1.0); TOTAL PROTEIN 6.3 g/dL (6.4-8.2)
[2018-05-26 10:56] LABS: ABSOLUTE LYMPHOCYTES 0.2 thou/uL (0.8-5.3); ABSOLUTE MONOCYTES 0.1 thou/uL (0.0-1.2); ABSOLUTE NEUTROPHILS 0.3 thou/uL (1.6-8.1); ATYPICAL LYMPHS 15 %; METAMYELOCYTES 2 %
[2018-05-26 10:57] LABS: ANISOCYTOSIS 1+; PLATELET ESTIMATE DECREASED
[2018-05-26 11:25] LABS: APTT 26.5 Seconds (25.0-31.3); PROTIME 10.2 Seconds (9.20-11.50)
[2018-05-26 14:45] VITALS: BP 91/44
--- NOTE | 2018-05-26 17:36 | EKG ---
[place] [address] ELECTROCARDIOGRAM REPORT Name: LORNA MALCOLM Room: [facility]#: [id number] Admission: 05/26/18 Attend Phys: Discharge: 05/26/18 Date of : 55 Report #: [id number] THIS REPORT FOR: //name// [facility] ED Test Date: 2018-05-26 Test Time: 09:22:57 Pat Name: LORNA MALCOLM Department: Room: Gender: F Director Of Property Management: Rigo CORTES : 1955 Requested By: Maday Jimenez Order Number: [id number] MD: Shant Rapp Measurements Intervals [place] Rate: 92 P: 66 HI: 113 QRS: -45 QRSD: 90 T: 118 QT: 361 QTc: 447 Interpretive Statements Sinus rhythm Borderline short HI interval Left anterior fascicular block Abnormal R-wave progression, early transition Nonspecific T abnormalities, lateral leads Compared to ECG 04/19/2018 11:44:01 no change Electronically Signed On 05-26-2018 17:36:13 WAISTLINE JOINER LOCKSTITCH by Shant Rapp [email or web address] <ELECTRONICALLY SIGNED> By: Shant Rapp MD, FACC 05/26/18 1736 0922 0922 Shant Rapp MD, [facility] /EPI
== END 2018-05-26 14:45 | disposition short-term general hospital (02) ==
LOC: M.ERS 09:18
PROVIDERS: Personal Emergency Response Attendant
DX: S06.6X0A Traumatic subarachnoid hemorrhage without loss of consciousness, initial encounter (principal); R55 Syncope and collapse; W19.XXXA Unspecified fall, initial encounter; Y93.89 Activity, other specified; Y92.89 Other specified places as the place of occurrence of the external cause; Y99.8 Other external cause status; E03.9 Hypothyroidism, unspecified; F32.9 Major depressive disorder, single episode, unspecified; F41.9 Anxiety disorder, unspecified; E78.5 Hyperlipidemia, unspecified; Z85.3 Personal history of malignant neoplasm of breast; Z88.1 Allergy status to other antibiotic agents

== ENCOUNTER → 2018-06-16 | Outpatient (CLI) | payer OTHER | LOC: M.MRI 12:30 | DX: C50.412 Malignant neoplasm of upper-outer quadrant of left female breast (principal) ==

== ENCOUNTER → 2018-06-21 | Day surgery (SDC) | payer OTHER ==
[~2018-06-21] VITALS: Ht 157.5 cm; Wt 69.9 kg
[2018-06-21 07:49] LABS: HEMATOCRIT 27.8 % (37.0-47.0); HEMOGLOBIN 9.5 gm/dL (12.0-15.0); MCH 32.5 pg (26.0-34.0); MCHC 34.3 g/dL (28.0-37.0); MCV 94.7 fL (80.0-100.0); MPV 7.5 fl. (7.2-11.1); RBC 2.93 mil/uL (4.20-5.00); RDW-CV 20.7 % (10.5-14.5); WBC 3.7 thou/uL (4.0-11.0)
[2018-06-21 08:00] VITALS: BP 135/82
[2018-06-21 08:05] LABS: ALBUMIN 3.3 g/dL (3.4-5.0); CALCIUM 8.9 mg/dL (8.5-10.1); CREATININE 1.2 mg/dL (0.6-1.3); POTASSIUM 3.2 mmol/L (3.5-5.1); TOTAL BILIRUBIN 0.5 mg/dL (<0.1-1.0); TOTAL PROTEIN 6.5 g/dL (6.4-8.2)
[2018-06-21 12:11] VITALS: BP 135/82
--- NOTE | 2018-06-25 10:09 | PATH ---
[address] [address] PATHOLOGY RPT PROCEDURE Name: MALCOLMLORNA Room: [facility].#: [id number] Admission: 06/21/18 Date of : 55 Discharge: Report #: [id number] Path Case #: [id number] [facility] Accession Number: [id number] . 01 Material submitted: . PART A: LEFT AXILLARY SENTINEL LYMPH NODE #1, BLUE, NOT HOT, 1108 - FS PART B: LEFT AXILLARY SENTINEL LYMPH NODE #2, HOT, BLUE, MAX COUNT 1900 - F PART C: LEFT BREAST CANCER, LONG LAT, SHORT SUP,DBL DEEP PART D: LEFT BREAST NEW MEDIAL MARGIN, STITCH REINOSO NEW MARGIN PART E: LEFT BREAST NEW INFERIOR MARGIN, STITCH REINOSO NEW MARGIN PART F: LEFT BREAST NEW LATERAL MARGIN, STITCH REINOSO NEW MARGIN PART G: LEFT BREAST NEW SUPERIOR MARGIN, STITCH REINOSO NEW MARGIN PART H: LEFT BREAST NEW POSTERIOR MARGIN, STITCH REINOSO NEW MARGIN PART I: LEFT BREAST NEW ANTERIOR MARGIN, STITCH REINOSO NEW MARGIN . 01 Clinical history: . Malignant neoplasm of upper outer quadrant of left female breast. C: Status post partial course neoadjuvant chemotherapy. . 02 Diagnosis: A. Left axillary sentinel lymph node #1, blue, not hot, 1108: - One benign lymph node (0/1). See comment. . B. Left axillary sentinel lymph node #2, hot, blue, max count 1900: - One benign lymph node (0/1). See comment. . C. LEFT BREAST CANCER: - INFILTRATING DUCTAL CARCINOMA, WITH PROMINENT MATRIX PRODUCTION (METAPLASTIC CARCINOMA), HIGH GRADE, MEASURING 12 MM IN GREATEST DIMENSION, IN ASSOCIATION WITH CHANGES OF PRIOR BIOPSY, WITH ALL SURGICAL MARGINS FREE OF INVOLVEMENT AND CLOSEST (POSTERIOR) LOCATED 2 MM AWAY. SEE COMMENT. . D. Left breast new medial margin: - Benign fibrofatty tissue. . E. Left breast new inferior margin: - Benign breast tissue with duct ectasia and luminal calcifications, negative for atypia. . F. Left breast new lateral margin: - Benign breast tissue, negative for atypia. . G. Left breast new superior margin: - Benign fibrofatty tissue. . H. Left breast new posterior margin: - Benign breast tissue with luminal calcifications, negative [place] [address] PATHOLOGY RPT PROCEDURE Name: MALCOLMLORNA Room: [facility]#: [id number] Admission: 06/21/18 Date of : 55 Discharge: Report #: [id number] Path Case #: [id number] I. Left breast new anterior margin: - Benign breast tissue, negative for atypia. LBQ/06/23/2018 . 02 Comment: SYNOPTIC PROTOCOL FOR INVASIVE CARCINOMA OF THE BREAST . Procedure ___ Wire guided excision and left axillary sentinel lymph node biopsies . Specimen Laterality ___ Left . + Tumor Site: Invasive Carcinoma + ___ Upper outer quadrant . Tumor Size ___ Greatest dimension: 12 mm . Histologic Type ___ Metaplastic carcinoma . Histologic Grade (Jennifer Histologic Score) . Glandular (Acinar)/Tubular Differentiation ___ Score 3 (<10% of tumor area forming glandular/tubular structures) . Nuclear Pleomorphism ___ Score 3 (vesicular nuclei, often with prominent nucleoli, exhibiting marked variation in size and shape, occasionally with very large and bizarre forms) . Mitotic Rate ___ Score 3 (greater than or equal to 8 mitoses per mm2) . Overall Grade ___ Grade 3 (scores of 8 or 9) . + Tumor Focality + ___ Single focus of invasive carcinoma . Ductal Carcinoma In Situ (DCIS) ___ Not identified . + Lobular Carcinoma In Situ (LCIS) + ___ No LCIS [place] [address] PATHOLOGY RPT PROCEDURE Name: LORNA MALCOLM [id number] Admission: 06/21/18 Date of : 55 Discharge: Report #: [id number] Path Case #: [id number] . ___ Uninvolved by invasive carcinoma ___ Cannot be determined: Is at least 2 mm away from posterior margin in primary excision, however, additional wider margins obtained (specimens D through I) . DCIS Margins ___ No DCIS in specimen . Regional Lymph Nodes ___ Uninvolved by tumor cells Number of Lymph Nodes Examined: 2 Number of [place] Nodes Examined: 2 . Treatment Effect . Treatment Effect in the Breast ___ No definite response to presurgical therapy in the invasive carcinoma . Treatment Effect in the Lymph Nodes ___ No lymph node metastases and no prominent fibrous scarring in the nodes . + Lymphovascular Invasion + ___ Not identified . + Dermal Lymphovascular Invasion + ___ No skin present . PATHOLOGIC STAGE CLASSIFICATION (pTNM, AJCC 8TH EDITION) . TNM Descriptors ___ y (posttreatment) . Primary Tumor (Invasive Carcinoma) (pT) ___ pT1c: Tumor >10 mm but < or equal to 20 mm in greatest dimension . Regional Lymph Nodes . Modifier ___ (sn): [place] nodes evaluated. . Category (pN) ___ pN0: No regional lymph node metastasis identified . + Ancillary Studies ([id number], A3) ER 0, CT 0, Her2 1+/not over expressed, Ki-67 43% . + [place] [address] PATHOLOGY RPT PROCEDURE Name: LORNA MALCOLM Room: [facility]#: [id number] Admission: 06/21/18 Date of : 55 Discharge: Report #: [id number] Path Case #: [id number] + ___ Identified in non-neoplastic tissue . + Clinical History + Left breast tissue, 2:00, 6 cm from nipple, image guided core biopsy performed 02/15/2018 ([id number]) showing ductal adenocarcinoma high grade spanning 9 mm with suggestion of matrix production (metaplastic carcinoma). . . The tumor, identified in C4 through C7 and C9, is well circumscribed and shows features typical of matrix production (metaplastic carcinoma) with areas of cartilage-like appearance and areas of very pleomorphic osteoclast-like malignant cells. Properly controlled keratin AE1/AE3 IHC performed on A1, A2, and B1 and B2 shows no evidence of metastatic tumor. C5 reviewed with Dr. Gomez Wei who agrees with the diagnosis. (ANDREINA/db; 06/23/2018) . 02 Electronically signed: . Alban Canchola MD, Pathologist NPI- [id number] . 03 Gross description: . A. Received fresh from the OR accompanied by a label marked "Lorna Malcolm, left axillary sentinel lymph node #1, blue, not hot 1108" and consists of a nodular segment of fat measuring 2.4 x 1.[address] Campbell notes this patient has a high-grade breast neoplasm and was unable to tolerate full neoadjuvant chemotherapy and requests intraoperative evaluation for the potential need for an extended axillary dissection. The fat is trimmed away from a blue-stained nodule within and this nodule is touch-prepped with the bisected tissues submitted for frozen studies and remainder of that tissue frozen submitted in cassette A1 and the remainder of the fatty tissue trimmed away and submitted in cassette A2. . B. Received fresh from the OR accompanied by a label marked "Lorna Malcolm, left axillary sentinel lymph node #2, hot, blue, max count 1900" and consists of a segment of fatty tissue measuring 1.5 x 1 x 0.8 cm. Fat is trimmed away resulting in a frias lymph node nodule within and a touch prep is prepared of the bisected nodule with those tissues then submitted for frozen studies and remainder of that tissue frozen and submitted in cassette B1 and the remaining fatty tissues trimmed away from it submitted in cassette B2. . (ANDREINA:delgado; 06/21/2018) . C. The specimen is received in formalin, labeled "Lorna Malcolm, left breast CA status post partial course sophia-adjuvent chemotherapy" and consists of an oriented 8 g breast lumpectomy specimen with a long suture lateral, short suture superior, and double deep. It measures 4.4 cm L-M, 2.9 cm S-I, and 1.5 cm A-P and is inked as follows: [place] [address] PATHOLOGY RPT PROCEDURE Name: LORNA MALCOLM Room: [facility]#: [id number] Admission: 06/21/18 Date of : 55 Discharge: Report #: [id number] Path Case #: [id number] inferior-green, medial-red, lateral-yellow, anterior-orange, and posterior-black. Protruding from the lateral aspect is a localization wire. It is sectioned from medial to lateral to reveal a poorly circumscribed solid mass (1.1 x 1.1 x 0.8 cm) with previous biopsy changes that extends from the margins as follows: 0.1 cm posterior, 0.2 cm anterior, 0.3 cm superior 0.3 cm inferior, greater than 1 cm lateral, and greater than 1 cm medial. The mass occupies approximately 30% of the parenchyma with the remaining 70% being homogeneous yellow without additional masses or lesions. The specimen is sequentially entirely submitted as follows: . C1: Lateral, perpendicular C2-C10: Entire mid specimen (C4-C7 include the mass) C11: Medial, perpendicular . The specimen was collected at 10:42 AM on 06/21/18 and placed in formalin at 10:57 AM. The cold ischemic time is 15 minutes and the total formalin fixation time is greater than 6 hours but less than 72 hours. . D. The specimen is received in formalin, labeled "Zoya Malcolmly, left breast new medial margin" and consists of a 1 g segment of yellow adipose tissue measuring 2.5 x 1.8 x 0.5 cm. A suture is present designating the new medial margin and this margin is inked red. The specimen is serially sectioned to reveal homogeneous yellow cut surfaces and no gross lesions. It is entirely submitted in D1-D2. Specimen is excised at 10:47 AM and placed in formalin at 10:49 AM. The cold ischemic time is 2 minutes and the total formalin fixation time is greater than 6 hours but less than 72 hours. . E. The specimen is received in formalin, labeled "Zoya Malcolmly, left breast new inferior margin" and consists of a 2 g segment of yellow fibroadipose tissue measuring 2.8 x 2.4 x 0.6 cm. A suture is present designating the new inferior margin and this margin is inked green. Serial sectioning reveals yellow homogenous cut surfaces and no gross lesions. The specimen is entirely submitted in E1-E4. The specimen was obtained at 10:52 AM on 06/21/18 and placed in formalin at 10:53 AM. The cold ischemic time is 1 minute and the total formalin fixation time is greater than 6 hours but less than 72 hours. . F. The specimen is received in formalin, labeled "Zoya Malcolmly, left breast new lateral margin" and consists of a 1 g segment of yellow adipose tissue measuring 2.5 x 2.0 x 0.5 cm. A suture is present designating the new lateral margin and this margin is inked yellow. Sectioning reveals homogeneous yellow cut surfaces with no discrete masses or lesions. The specimen is entirely submitted in F1-F2. It was collected at 10:54 AM on 06/21/18 and placed in formalin at 10:56 AM. The cold ischemic time is 2 minutes and the total formalin fixation time is greater than 6 hours but less than 72 [place] [address] PATHOLOGY RPT PROCEDURE Name: LORNA MALCOLM Room: [facility]#: [id number] Admission: 06/21/18 Date of : 55 Discharge: Report #: [id number] Path Case #: [id number] G. The specimen is received in formalin, labeled "Lorna Malcolm, left breast new superior margin" and consists of a 2 g segment of yellow adipose tissue measuring 2.8 x 2.0 x 0.6 cm. A suture is present designating the new superior margin and this margin is inked blue. It is serially sectioned to reveal homogeneous yellow cut surfaces and no discrete masses or lesions. The specimen is entirely submitted in G1-G3. It was collected at 10:56 AM on 06/21/18 and placed in formalin at 10:57 AM. The cold ischemic time is 1 minute and the total formalin fixation time is greater than 6 hours but less than 72 hours. . H. The specimen is received in formalin, labeled "Lorna Malcolm, left breast new posterior margin" and consists and consists of a less than 1 g segment of yellow fibroadipose tissue measuring 1.0 x 0.8 x 0.4 cm. A suture is present designating the new posterior margin and this margin is inked black. It is trisected to reveal no gross lesions and entirely submitted in H1. The specimen is collected at 11 AM on 06/21/18 and placed in formalin at 11:01 AM. The cold ischemic time is 1 minute and the total formalin fixation time is greater than 6 hours but less than 72 hours. . I. The specimen is received in formalin, labeled "Lorna Malcolm, left breast new anterior margin" and consists of a 1 g segment of yellow fibroadipose tissue measuring 1.8 x 1.3 x 0.5 cm. A suture is present designating the new anterior margin and this margin is inked orange. Serial sectioning reveals no gross lesions and the specimen is entirely submitted in I1. It was collected at 11:01 AM on 06/21/18 and placed in formalin at 11:03 AM. The cold ischemic time is 2 minutes and the total formalin fixation time is greater than 6 hours but less than 72 hours. (MAXIMILIANO; 06/22/2018) . . INTRAOPERATIVE CONSULTATION (Alban Canchola MD) . A. Frozen diagnosis with touch prep (left axillary sentinel lymph node #1): - Lymph node, negative for macro- and micrometastases. . B. Frozen diagnosis with touch prep (left axillary sentinel lymph node #2): - Lymph node, negative for macro- and micrometastases. . This part of the intraoperative results are relayed directly to Dr. Campbell and a note is entered into the medical record. . (ANDREINA:delgado; 06/21/2018) . Frozen section performed at [facility], [address] [place] [address]. [place] [address] PATHOLOGY RPT PROCEDURE Name: LORNA MALCOLM Room: [facility] Katrina#: [id number] Admission: 06/21/18 Date of : 55 Discharge: Report #: [id number] Path Case #: [id number] /MBR . 02 Pathologist provided ICD-10: C50.912 . 02 CPT . 672447, 099164, 677786, 929995, 241773, 802233, 645376, 429857, 170760, Z18768, 216577, 809300 Specimen Comment: A courtesy copy of this report has been sent to Specimen Comment: [phone], . Specimen Comment: Report sent to / DR MARIE Specimen Comment: A duplicate report has been generated due to demographic updates. Performed at: [address] [facility] [address] [place] [id number] MD Jan Stephenson MD Phone: [phone] Performed at: 02 [facility] [address] [place], [place] [address], [place], [place] [id number] MD Alban Canchola MD Phone: [phone] Performed at: [address] [facility] [address], [place], [place] [id number] MD Jan Stephenson MD Phone: [phone]
--- NOTE | 2018-07-26 11:07 | OP ---
[address] [address] OPERATIVE REPORT Name: LORNA MALCOLM Room: [facility]#: [id number] Admission: 06/21/18 Attend Phys: Ronit Campbell MD Discharge: Date of : 55 Report #: [id number] THIS REPORT FOR: //name// CC: Maritza Christa Campbell DATE OF SERVICE: 06/21/2018 PREOPERATIVE DIAGNOSIS: Malignant neoplasm, upper outer quadrant, left female breast, status post partial course neoadjuvant chemotherapy. POSTOPERATIVE DIAGNOSIS: Malignant neoplasm, upper outer quadrant, left female breast, status post partial course neoadjuvant chemotherapy. PROCEDURE: 1. Injection of blue dye. 2. Left breast needle localized lumpectomy. 3. Left axillary sentinel lymph node biopsy. SURGEON: Ronit Campbell MD FLOAT NURSE: None. ANESTHESIA: General anesthesia. ESTIMATED BLOOD LOSS: 5 mL. COMPLICATIONS: None. FINDINGS: [place] nodes x 2 negative on frozen section. Clip in the lesion within the mammographic specimen. Other incision 6 cm in length, 11 cm from nipple, axillary. SPECIMENS: 1. Left breast mass. 2. Left breast new medial margin. 3. Left breast new inferior margin. 4. Left breast new lateral margin. 5. Left breast new superior margin. 6. Left breast new posterior margin. 7. Left breast new anterior margin. 8. Left axillary sentinel lymph node #1, blue, not hot. 9. Left axillary sentinel lymph node #2, hot, blue, max count 1900. COMPLICATIONS: None. [address] [address] OPERATIVE REPORT Name: MALCOLMLORNA S Room: [facility].#: [id number] Admission: 06/21/18 Attend Phys: Ronit Campbell MD Discharge: Date of : 55 Report #: [id number] INDICATIONS: The patient is a 63-year-old female with imaging in 01/2018 showing a 1.6 cm hypoechoic nodule at the 2 o'clock left breast, 6 cm from nipple. 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 MRI confirmed the primary lesion only. Given the metaplastic triple negative breast cancer with negative lymph nodes, recommendation by Oncology was for neoadjuvant chemotherapy. The patient had multiple difficulties throughout chemotherapy, with the first round of drugs she seemed to have no clinical response within the breast and she had significant difficulties requiring multiple hospitalizations. Therefore, Oncology elected to terminate chemotherapy. Her last chemotherapy treatment was 05/12/2018. Post-neoadjuvant imaging with an MRI confirmed that the lesion had decreased in size as compared to her initial MRI size and there were no other additional suspicious findings. The patient was interested in breast conservation with lumpectomy and sentinel node biopsy. Risks and benefits for such were discussed with the patient and delineated in the H and P and she agreed to proceed. DESCRIPTION OF PROCEDURE: The patient was brought to the operating room after informed consent had been obtained. She was placed under general anesthesia in the supine position with the left arm extended. Preoperatively, she had been taken to ultrasound for wire localization of the mass followed by Nuclear Medicine for injection for the sentinel node portion of the case. Prior to prepping and draping 5 mL of Lymphazurin blue was injected in the intradermal and subdermal location in the upper outer periareolar region of the left breast. The left breast and axilla were then prepped and draped in normal sterile manner. Given the location of the upper outer quadrant, the decision was made to proceed with excision via axillary incision. Prior to skin incision a combination of 1% lidocaine plain and 0.5% Marcaine with epinephrine was used. A skin incision was made in the axilla with a knife. This was deepened in the subcutaneous tissues using the Bovie electrocautery. A path was then created toward the wire exit site. Once identified, it was grasped with 2 hemostats and brought into the incision. The Bovie electrocautery was used to circumferentially excise the lump of tissue surrounding the pathway of the wire and the palpable mass. Once completely removed, it was labeled for orientation purposes and placed in the mammographic specimen tray. Attention was then turned to the lumpectomy cavity. It was copiously irrigated with normal saline, noted to be adequately hemostatic. Attention was first turned to the region of the medial margin. The region of the medial margin was grasped with an Allis clamp. Bovie electrocautery was used to excise the thin rim of tissue to encompass the new medial margin. This was then repeated in the inferior, lateral, superior, posterior and anterior margins. All were labeled for orientation purposes and sent for permanent specimen. Meanwhile, mammogram did confirm the lesion appropriately centered within the specimen. The lumpectomy bed was then marked with 4 medium Ligaclips and the defect was closed with interrupted 3-0 Vicryl sutures in some layers to reapproximate the cavity. A Weitlaner retractor was then placed and attention was [place] [address] OPERATIVE REPORT Name: LORNA MALCOLM Room: [facility]#: [id number] Admission: 06/21/18 Attend Phys: Ronit Campbell MD Discharge: Date of : 55 Report #: [id number] the axilla. The axillary fascia was divided with the Bovie electrocautery and fairly superficial blue lymph node was identified. This was isolated with a combination of Ligaclip and Bovie electrocautery dissection. Once completely removed, counts were obtained and it did not have a significant radiotracer uptake and this was sent off as sentinel node #1. Attention was then redirected to the axilla. Site of high counts were noted and another blue hot lymph node was identified. This was isolated with a combination of Ligaclip and Bovie electrocautery dissection. Once completely removed, this was sent off as sentinel node #2. The [place] probe was reintroduced into the axilla and there were no additional high counts noted. Copiously irrigated with normal saline and noted to be adequately hemostatic. A single interrupted suture of 3-0 Vicryl was used to reapproximate the axillary fascia. Attention was then turned to the region of the breast dissection as well and I continued to close the soft tissue in layers overlying the lumpectomy bed. The deep dermal layers were then closed with interrupted 3-0 Vicryl suture. Skin was closed with 4-0 Monocryl in a subcuticular manner. The wound was dressed with Dermabond dressing. Meanwhile, frozen section returned as negative both sentinel nodes. The patient tolerated the procedure well. Sponge, lap and needle counts were correct x 2 at the end of the procedure. She was transferred to recovery in stable condition. <ELECTRONICALLY SIGNED> By: Ronit Campbell MD 07/26/18 1107 1200 [id number] Campbell MD /nt
== END | disposition home or self-care (01) ==
LOC: M.SUR 07:11
PROVIDERS: Surgery
DX: C50.412 Malignant neoplasm of upper-outer quadrant of left female breast (principal); N60.82 Other benign mammary dysplasias of left breast; D36.0 Benign neoplasm of lymph nodes; R92.1 Mammographic calcification found on diagnostic imaging of breast; E03.9 Hypothyroidism, unspecified; E78.5 Hyperlipidemia, unspecified; Z98.84 Bariatric surgery status; Z98.890 Other specified postprocedural states; Z79.899 Other long term (current) drug therapy; Z88.8 Allergy status to other drugs, medicaments and biological substances

== ENCOUNTER → 2018-11-05 | Outpatient (CLI) | payer OTHER ==
--- NOTE | ~2018-11-05 | ONC ---
[address] [address] RADIATION ONCOLOGY NOTE Name: YUNLORNA David Room: [facility]#: [id number] Admission: 11/05/18 Attend Phys: Oseas Son MD Discharge: Date of : 55 Report #: [id number] THIS REPORT FOR: //name// CC: Oseas Goodwin DATE OF SERVICE: 11/05/2018 REFERRING PHYSICIANS: Dr. Maritza Goodwin, Dr. Ronit Campbell and Dr. 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 All surgical margins were free of involvement. There were 2 lymph nodes, which were not involved with breast cancer that was estrogen receptor negative/progesterone receptor negative and HER2/honorio negative: In interval note, the patient ended up having low counts recently after her chemotherapy. So the chemotherapy was discontinued and she presents for consideration for radiation therapy to the left breast. SOCIAL HISTORY: The patient is retired. She is . Ethanol, she drinks about 2-3 glasses of alcohol containing drinks per week. Cigarettes, she smoked about a half pack of cigarettes for 2 years and quit smoking cigarettes about 1977. REVIEW OF SYSTEMS: RESPIRATORY: Breathing was stable. She was not short of breath. MUSCULOSKELETAL: She had good range of motion in upper extremities. PHYSICAL EXAMINATION: With my nurse, Devi Quintero, present: VITAL SIGNS: Weight was 153.6 pounds on 11/05/2018, 180.4 pounds on 03/10/2018. On 11/05/2018, blood pressure is 119/76, pulse 70, oxygen saturation 98%, respirations 18. LYMPH NODES: She had no cervical, supraclavicular or axillary lymphadenopathy. HEART: Had a regular rate and rhythm without murmur. LUNGS: Clear to auscultation. BREASTS: The left breast had no suspicious palpable masses. Surgical scars were well healed. Right breast had no suspicious palpable masses. ABDOMEN: Nontender. Spleen was not palpable. Liver was at the costal margin. EXTREMITIES: No clubbing, cyanosis or edema. LABORATORY DATA: From 11/02/2018, hemoglobin was 9.2, platelets were 45,000, white blood cell counts were 2.8. From 10/12/2018, sodium was 136, potassium 4.0, BUN 16, creatinine 1.05. ASSESSMENT AND PLAN: [place] [address] RADIATION ONCOLOGY NOTE Name: LORNA MALCOLM Room: [facility]#: [id number] Admission: 11/05/18 Attend Phys: Oseas Son MD Discharge: Date of : 55 Report #: [id number] 1. History of left breast cancer. The patient was offered radiation therapy as part of breast conservation therapy for her breast cancer. This is based on studies such as the NSABP B-06 for which the patients are randomized to total mastectomy versus lumpectomy alone versus lumpectomy and radiation therapy. At 20-year followup, there is no difference in survival between the 3 treatment groups. The addition of radiation therapy to lumpectomy reduced the local failure rate from 39% to 14%. In addition studies from [facility] indicated also an accelerated version of the radiation therapy as effective as the standard fractionation used in the NSABP. So the risks, benefits, logistics of radiation therapy were explained to the patient in detail. She gave her witnessed informed consent to proceed with radiation therapy. She will probably schedule for simulation in several weeks, so she has time to recuperate from chemotherapy. 2. Hypothyroidism. The patient takes 125 mcg of levothyroxine and that is managed by her referring physicians. 3. Hyperlipidemia. The patient takes Crestor and that is managed by her referring physicians. Thank you for allowing me to participate in the care of this patient. By: [id number] Son MD /onelia
== END ==
LOC: M.RTH 05-05 09:15
DX: Z08 Encounter for follow-up examination after completed treatment for malignant neoplasm (principal); E03.9 Hypothyroidism, unspecified; E78.5 Hyperlipidemia, unspecified; Z85.3 Personal history of malignant neoplasm of breast; Z92.3 Personal history of irradiation; Z90.12 Acquired absence of left breast and nipple; Z87.891 Personal history of nicotine dependence

== ENCOUNTER → 2019-03-24 | Outpatient (CLI) | payer OTHER | LOC: M.RAD 08:29 | DX: C50.412 Malignant neoplasm of upper-outer quadrant of left female breast (principal) ==

== ENCOUNTER → 2019-12-23 | Day surgery (SDC) | payer OTHER ==
[~2019-12-23] MED LIST changes: +CRESTOR40 MG PO; +VITAMIN D21250 MC1 PO
--- NOTE | ~2019-12-23 | OP ---
[address] [address] OPERATIVE REPORT Name: LORNA MALCOLM Room: [facility].#: [id number] Admission: 12/23/19 Attend Phys: Ronit Campbell MD Discharge: Date of : 55 Report #: [id number] THIS REPORT FOR: //name// cc: Maritza Goodwin MD, Katrina MD ~ THIS REPORT FOR: //name// CC: Maritza Campbell DATE OF SERVICE: 12/23/2019 PREOPERATIVE DIAGNOSIS: Malignant neoplasm, upper outer quadrant, left female breast. POSTOPERATIVE DIAGNOSIS: Malignant neoplasm, upper outer quadrant, left female breast. PROCEDURE: Removal of right subclavian vein MediPort. SURGEON: Ronit Campbell MD PROGRAMMER OPERATOR NUMERICAL CONTROL: None. ANESTHESIA: MAC anesthesia. COMPLICATIONS: None. SPECIMENS REMOVED: Port. DISPOSITION: Stable to PACU. ESTIMATED BLOOD LOSS: 1 mL. INDICATIONS: The patient is a 64-year-old female with breast cancer diagnosed in February 2018. She underwent neoadjuvant chemotherapy and definitive breast surgery in June 2018. She is with a highly aggressive triple negative breast cancer. She had a partial course of adjuvant chemo as well which was also stopped due to problems and status post adjuvant radiation. She was given okay for port removal by her medical oncologist and desired to proceed. PROCEDURE IN DETAIL: The patient was brought to the operating room after informed consent had been obtained. She was placed under MAC anesthesia in the supine position with her arms tucked at her side. Her right chest was prepped and draped in normal sterile manner. Prior to all skin incisions, a combination of 1% lidocaine plain and 0.5% Marcaine with epinephrine [place] [address] OPERATIVE REPORT Name: LORNA MALCOLM Room: [facility].#: [id number] Admission: 12/23/19 Attend Phys: Ronit Campbell MD Discharge: Date of : 55 Report #: [id number] MediPort incision was incised with a knife. This was deepened into the subcutaneous tissues using the [employer]ovie electrocautery. Her MediPort was grasped with hemostat. The capsule was incised and the MediPort was removed from the pocket. A single [id number] suture of 3-0 Vicryl was used to close the tubing tract. The deep dermal layers were then closed with interrupted 3-0 Vicryl sutures and skin was closed with 4-0 Monocryl in a subcuticular manner. The wound was dressed with Dermabond dressing. The patient tolerated the procedure well. Sponge, lap and needle counts were correct x 2 at the end of procedure. She was transferred to recovery in stable condition. By: 0930 1041Mindi Bryan Campbell MD /nt
[2019-12-23 07:29] LABS: HEMATOCRIT 39.2 % (37.0-47.0); HEMOGLOBIN 13.6 gm/dL (12.0-15.0); MCH 34.7 pg (26.0-34.0); MCHC 34.7 g/dL (28.0-37.0); MPV 7.5 fl. (7.2-11.1); RBC 3.92 mil/uL (4.20-5.00); RDW-CV 13.7 % (10.5-14.5); WBC 5.1 thou/uL (4.0-11.0)
[2019-12-23 07:35] LABS: CALCIUM 8.8 mg/dL (8.5-10.1); CREATININE 1.2 mg/dL (0.6-1.3); POTASSIUM 4.5 mmol/L (3.5-5.1)
--- NOTE | 2019-12-24 09:42 | EKG ---
[place] [address] ELECTROCARDIOGRAM REPORT Name: LORNA MALCOLM Room: [facility]#: [id number] Admission: 12/23/19 Attend Phys: Ronit Campbell MD Discharge: Date of : 55 Date of Service: 12/23/19818 Report #: [id number] THIS REPORT FOR: //name// [facility] Test Date: 2019-12-23 Test Time: 08:19:50 Pat Name: LORNA MALCOLM Department: Room: Gender: F Electroplater: : 1955 Requested By: Ronit Campbell Order Number: [id number] Reading MD: Joao Vázquez Measurements Intervals [place] Rate: 88 P: 66 NV: 121 QRS: -49 QRSD: 103 T: 50 QT: 364 QTc: 441 Interpretive Statements Sinus rhythm Left anterior fascicular block Abnormal R-wave progression, late transition Probable left ventricular hypertrophy Compared to ECG 05/26/2018 09:22:57 T-wave abnormality no longer present Electronically Signed On 12-24-2019 9:41:02 CDT by Joao Vázquez [email or web address] <ELECTRONICALLY SIGNED> By: Joe Vázquez MD, [facility] 12/24/1941 8 8 Joe Vázquez MD, [facility] /EPI
== END | disposition home or self-care (01) ==
LOC: M.SUR 07:02 → M.LAB 09:45 → M.SUR 11:39 → M.LAB 12:42
PROVIDERS: ATTEND Surgery
DX: Z45.2 Encounter for adjustment and management of vascular access device (principal); C50.412 Malignant neoplasm of upper-outer quadrant of left female breast; Z11.59 Encounter for screening for other viral diseases; Z98.890 Other specified postprocedural states; Z79.899 Other long term (current) drug therapy; Z88.8 Allergy status to other drugs, medicaments and biological substances

== ENCOUNTER → 2020-03-26 | Outpatient (CLI) | payer OTHER | LOC: M.RAD 10:08 | PROVIDERS: ATTEND Radiology Radiation Oncology | DX: C50.912 Malignant neoplasm of unspecified site of left female breast (principal); R92.8 Other abnormal and inconclusive findings on diagnostic imaging of breast; Z98.890 Other specified postprocedural states ==

== ENCOUNTER → 2020-04-03 | Outpatient (CLI) | payer OTHER ==
[~2020-04-03] MED LIST changes: +GABAPENTIN600 M1 PO; +HYDROCODON-ACE1 EAC7 PO; +LORAZEPAM 1 MG T1 MG PO; +NEURONTIN 300M300 M2 PO
--- NOTE | 2020-04-10 15:07 | PATH ---
[address] [address] PATHOLOGY RPT PROCEDURE Name: LORNA MALCOLM [id number] Admission: 04/03/20 Date of : 55 Discharge: Report #: [id number] Path Case #: [id number] [facility] Accession Number: [id number] . 01 Material submitted: . breast - LEFT BREAST 2:00 6CMFN. Modifiers: left, 2:00 . 01 Clinical history: . 1.49X2.42X1.42CM LEFT BREAST MASS . 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 SEE COMMENT. . Surgical Pathology Cancer Case Summary . Protocol posting date: August 2019 . INVASIVE CARCINOMA OF THE BREAST: Biopsy . Procedure ___ Other: Image guided core biopsy . Specimen Laterality ___ Left . Tumor Site ___ Clock position: 2 o'clock ___ Distance from nipple: 6 cm . Tumor Size ___ Greatest dimension of largest invasive focus >1 mm: 11 mm . Histologic Type ___ Metaplastic carcinoma . Histologic Grade (Jennifer Histologic Score) . Glandular (Acinar)/Tubular Differentiation ___ Score 3 (<10% of tumor area forming glandular/tubular structures) . Nuclear Pleomorphism ___ Score 2 (cells larger than normal with open vesicular nuclei, visible nucleoli, and moderate variability in both size and shape) . Mitotic Rate [address] [place] [address] PATHOLOGY RPT PROCEDURE Name: LORNA MALCOLM Room: [facility]#: [id number] Admission: 04/03/20 Date of : 55 Discharge: Report #: [id number] Path Case #: [id number] ___ Score 3 . Overall Grade ___ Grade 3 (scores of 8 or 9) . Ductal Carcinoma In Situ (DCIS) ___ Not identified . Lymphovascular Invasion ___ Not identified . Microcalcifications ___ Not identified . Ancillary Studies Biomarker Studies ___ Pending (ANDREINA:pit 04/04/2020) QTP 04/04/2020 1323 Local . 02 Comment: This patient had infiltrating ductal carcinoma with prominent matrix production (metaplastic carcinoma), high-grade removed in a lumpectomy of the upper outer quadrant around 06/2018 with clear margins and two benign sentinel lymph nodes ([id number]). Breast tumor profile performed on the prior core biopsy of the left breast, 2:00, 6 cm from nipple (02/2018) showed ER 0, HI 0, Her2 1+/not over expressed, and Ki-67 of 43% ([id number]). Repeat breast tumor profile studies are pending on block A2 from the current case and will be the subject of an addendum report. Discussed with Dr. Cano at approximately 12:30 on 04/04/2020 and with Megan Hall ([facility] Breast Navigator) at approximately 12:40 on 04/04/2020. Reviewed with Dr. Magda Maldonado who agrees with the diagnosis. (ANDREINA:pit 04/04/2020) . 02 Addendum: . Special studies report received from [facility], [address] [place] [address], [address], [place], [address], on case [id number], labeled with their number [id number], dated 04/09/2020. . Breast/Prognostic Marker Analysis . Specimen Site: Left Breast, 2:00, 6 cm From Nipple, Biopsy, Breast Cancer Specimen ID #: [id number] . ER (Estrogen Receptor) Absent/Negative Percent: 0.00 [place] [address] PATHOLOGY RPT PROCEDURE Name: LORNA MALCOLM Room: [facility] Katrina#: [id number] Admission: 04/03/20 Date of : 55 Discharge: Report #: [id number] Path Case #: [id number] Analysis: Manual Comments: ER Comment: No internal controls are present, but external controls are appropriately positive. If needed, testing another specimen that contains internal controls may be warranted for confirmation of ER status. . HI (Progesterone Receptor) Present/Positive Percent: 1.00% Analysis: Manual Comments: Staining Intensity: Weak ER is negative and HI is positive in this case. Consider repeat testing on another sample per ASCO/CAP guidelines. . HER2 Not Over-Expressed Score: 1+ Analysis: Manual . Ki-67 High Proliferation Percent: 40.00% Analysis: Manual . Time to Fixation (Cold Ischemic Time): Immediate Duration of Fixation: 12 hours 4 minutes Type of Fixative: 10% Neutral Buffered Formalin . Comments: ER/PgR testing at [facility]. is performed in compliance with the ASCO/CAP Clinical Practice Guidelines. If the result for ER is less than 1% it is reported as Negative; if the ER result is 1-10% it is reported as Low Positive; if the ER result is greater than 10% it is reported as Positive. If the result for PgR is less than 1% it is reported as Negative; if the PgR result is equal to or greater than 1%, it is reported as Positive. . REFERENCE: Solange KH, Gaviota KAMARAH, Jun M, et al. Estrogen and progesterone receptor testing in breast cancer. ASCO/CAP guideline update. Arch Pathol Lab Med. 2020; 144:545-563. . Whole slide image capture is performed using 3LM ([employer]) platform. Image analysis, if ordered, is performed using [employer] software. . at [facility]. Jessy [place]ena [place] [address] PATHOLOGY RPT PROCEDURE Name: LORNA MALCOLM Room: [facility]#: [id number] Admission: 04/03/20 Date of : 55 Discharge: Report #: [id number] Path Case #: [id number] . Methodology The HER2 Receptor protein expression is analyzed using the [employer] HER2 rabbit monoclonal antibody (clone 4B5). This assay is used for diagnostic determination of the HER2 protein over-expression in paraffin embedded, formalin fixed breast cancer tissue on the [employer]. The specimen is processed using a secondary antibody-HRP conjugate detection system. The membrane staining of the tumor is determined either by manual score or image analysis. This antibody is intended for in vitro diagnostic use. The score is reported as 0, 1+, 2+, or 3+. This test is used for clinical purposes. . A rabbit monoclonal antibody (clone SP1) that recognized the Estrogen Receptor is used to perform immunohistochemistry on routinely fixed (formalin) paraffin embedded tissue on the [employer]. The specimen is processed using a secondary antibody-HRP conjugate detection system. The percentage of stained tumor nuclei is determined either manually or by image analysis. This test is intended for in vitro diagnostic use. This test is used for clinical purposes. . A rabbit monoclonal antibody (clone 1E2) that recognized the Progesterone Receptor is used to perform immunohistochemistry on routinely fixed (formalin) paraffin embedded tissue on the [employer]. The specimen is processed using a secondary antibody-HRP conjugate detection system. The percentage of stained tumor nuclei is determined either manually or by image analysis. This test is intended for in vitro diagnostic use. This test is used for clinical purposes. . A rabbit monoclonal antibody (clone 30-9) that recognized Ki67 is used to perform immunohistochemistry on routinely fixed (formalin) paraffin embedded tissue on the [employer]. The specimen is processed using a secondary antibody-HRP conjugate detection system. The percentage of stained tumor nuclei is determined either manually or by image analysis. This test is intended for in vitro diagnostic use. This test is used for clinical purposes. . Intended Use: This antibody is intended for in vitro diagnostic (IVD) use. HER2 (4B5) is a rabbit monoclonal antibody intended for the semi-quantitative detection of HER2 antigen in sections of formalin-fixed, paraffin embedded normal and neoplastic tissue. . This antibody is intended for in vitro diagnostic (IVD) use. Estrogen Receptor (ER) (SP1) is a rabbit monoclonal antibody (IgG) that is intended for the qualitative detection of estrogen receptor (ER) antigen in sections of formalin-fixed, paraffin-embedded tissue. ER is a rabbit monoclonal antibody that recognizes human estrogen receptor alpha. . This antibody is intended for in vitro diagnostic ([place] [address] PATHOLOGY RPT PROCEDURE Name: LORNA MALCOLM Room: [facility]#: [id number] Admission: 04/03/20 Date of : 55 Discharge: Report #: [id number] Path Case #: [id number] Receptor (HI) (1E2) is a rabbit monoclonal antibody (IgG) that is intended for the qualitative detection of progesterone receptor (HI) antigen in sections of formalin fixed, paraffin embedded tissue. HI is a rabbit monoclonal antibody that recognizes the A and B forms of the human progesterone receptor. . This antibody is intended for in vitro diagnostic (IVD) use. Ki-67 (30-9) is a rabbit monoclonal antibody (IgG) directed against C-terminal portion of Ki-67 antigen. Staining for Ki-67 can be used to aid in assessing the proliferative activity of normal and neoplastic tissue. Ki-67 is a nuclear protein expressed in proliferating cells. During the cell cycle, the Ki-67 antigen is present in the G1, S, G2 and M phase but is absent in the G0 (quiescent phase). . . Disclaimer: This Test was performed by [facility]. at [address], [address]. . [facility] is a business unit of [facility]. a wholly-owned subsidiary of [employer]. . This assay has not been validated on decalcified tissues. Results should be interpreted with caution if this specimen was decalcified given the likelihood of false negativity on decalcified specimens. . Any image(s) that accompany this report is/are a marketing representative image(s) only and should not be used to render a diagnosis. . This interpretation is contingent on the specimen and the clinical information received. . For any special tests/stains performed, known positive cells or tissues are tested with each marker and examined to ensure positivity. Positive and negative internal controls, if present, react appropriately. . This analysis is an adjunct to the evaluation of the referring physician and does not represent a final diagnosis. . The immunohistochemistry tests performed at [facility]. were validated on tissue fixed in 10% neutral buffered formalin. The performance characteristics of the tests performed on tissue processed in other fixatives is not known. . HER2 testing at [facility] is performed in compliance with the 2018 updated ASCO/CAP Clinical Practice Guideline Focused Update. If the result is EQUIVOCAL (2+), it must be confirmed by an alternative assay such as [place] [address] PATHOLOGY RPT PROCEDURE Name: LORNA MALCOLM Room: [facility]#: [id number] Admission: 04/03/20 Date of : 55 Discharge: Report #: [id number] Path Case #: [id number] REF: Gracy CREWS, JACKIE Meek et al: Human Epidermal Growth Factor Receptor 2 Testing in Breast Cancer: ASCO/CAP Clinical Practice Guideline Focused Update. J Clin Oncol 36:3098-9203, 2018. . HER2 and ER/HI ASCO/CAP guidelines require fixation in neutral buffered formalin for a minimum of 6 and a maximum of 72 hours. Fixation times less than 6 hours may not adequately preserve cell proteins. Fixation times longer than 72 hours may cause excess cross-linking of proteins reducing the antigen available for staining. Either scenario can cause reduced staining; hence false negative results are possible and should be considered for these situations if the HER2 IHC score is less than 3+ or ER or HI is negative (no staining or <1% positive). It is recommended that specimens fixed longer than 72 hours with HER2 IHC scores less than 3+ be confirmed by HER2 FISH or Dual SYL. The time from biopsy/excision to fixation in formalin (cold ischemic time) must be less than 1 hour. Time to fixation (cold ischemic time) greater than 1 hour should be interpreted with caution. HER2 testing, mainly HER2 by FISH, is particularly vulnerable since excessive cold ischemic time results in preferential loss of HER2 probe signals that may lead to false negative results. . SCORE STAINING PATTERN IN TUMOR CELLS INTERPRETATION RESULTS 0 No staining observed or incomplete, faint membrane staining in less than or equal to 10% of tumor cells. Negative 1+ Incomplete, faint membrane staining in greater than 10% of tumor cells. Negative 2+ Weak to moderate complete membrane staining observed in greater than 10% of tumor cells. Equivocal* *Must be confirmed by alternative assay (IHC/FISH/Dual SYL) 3+ Intense, complete membrane staining in greater than 10% of tumor cells. Positive . A complete copy of the report is on file. . Professional and Technical services performed by [facility]. at [address] [place] [address] [address], [place] [address]. . (ANDREINA:[facility] 04/10/2020) . [facility]/04/10/2020 Addendum Electronically Signed by Alban Canchola MD, Pathologist . 02 Electronically signed: [place] [address] PATHOLOGY RPT PROCEDURE Name: LORNA MALCOLM Room: [facility]#: [id number] Admission: 04/03/20 Date of : 55 Discharge: Report #: [id number] Path Case #: [id number] Alban Canchola MD, Pathologist NPI- [id number] . 01 Gross description: . The specimen is received in formalin, labeled "Lorna Malcolm, left breast biopsy 2:00 6 cm from nipple". Received are multiple needle cores of fibrofatty tissue measuring 1.7 x 1.0 x 0.2 cm in aggregate dimensions. The specimen is submitted entirely in cassettes A1 through A3. The cold ischemic time is 1 minute. The total formalin fixation time is 12 hours and 4 minutes. (CAA; 04/03/2020) QAC/QAC 04/04/2020 1310 Local . 02 Pathologist provided ICD-10: C50.912 . 02 CPT . 113246 Specimen Comment: A courtesy copy of this report has been sent to [phone], [phone] Specimen Comment: [phone], , , Specimen Comment: Report sent to ,DR CANO,DR MARIE / DR KAM Specimen Comment: DR HALL Specimen Comment: A duplicate report has been generated due to demographic updates. Performed at: 01 [facility] [address], [place], [place] [address] MD Jan Stephenson MD Phone: [phone] Performed at: 02 [facility] [address], [place], [place] [id number] MD Alban Canchola MD Phone: [phone]
== END | disposition home or self-care (01) ==
LOC: M.ULTRA 08:01
PROVIDERS: ATTEND Internal Medicine Hematology & Oncology
DX: N63.21 Unspecified lump in the left breast, upper outer quadrant (principal); C50.412 Malignant neoplasm of upper-outer quadrant of left female breast; Z79.899 Other long term (current) drug therapy

== ENCOUNTER → 2020-04-10 | Outpatient (CLI) | payer OTHER | LOC: M.MRI 12:30 → M.LAB 12:30 → M.MRI 12:52 | PROVIDERS: ATTEND Surgery | DX: C50.919 Malignant neoplasm of unspecified site of unspecified female breast (principal); N64.4 Mastodynia ==

== ENCOUNTER → 2020-04-20 | Outpatient (CLI) | payer OTHER | LOC: M.LAB 11:21 | PROVIDERS: ATTEND Surgery | DX: Z01.812 Encounter for preprocedural laboratory examination (principal); Z20.828 Contact with and (suspected) exposure to other viral communicable diseases ==

== ENCOUNTER 2020-04-25 08:33 | Observation (INO) | payer OTHER ==
[~2020-04-25] VITALS: Ht 157.5 cm; Wt 79.4 kg
--- NOTE | ~2020-04-25 | H ---
[address] [address] HISTORY AND PHYSICAL Name: LORNA MALCOLM Room: [address] Anahi Herndon#: [id number] Admission: 04/25/20 Attend Phys: Ronit Campbell MD Discharge: 04/27/20 Date of : 55 Report #: [id number] THIS REPORT FOR: //name// cc: FAM - No family physician/PCP FAM - No family physician/PCP ~ Please refer to the History and Physical performed in the physician's office. By: 0701Medical Records Staff EZEKIEL /CHRIS
[~2020-04-25 08:33] MED LIST changes: -HYDROCODON-ACE1 EAC7 PO; -NEURONTIN 300M300 M2 PO
[2020-04-25 09:30] VITALS: BP 138/98
[2020-04-25 10:12] LABS: HEMOGLOBIN 12.8 gm/dL (12.0-15.0); MCHC 33.5 g/dL (28.0-37.0); MCV 95.4 fL (80.0-100.0); MPV 8.5 fl. (7.2-11.1); RBC 3.99 mil/uL (4.20-5.00); RDW-CV 13.3 % (10.5-14.5); WBC 5.7 thou/uL (4.0-11.0)
[2020-04-25 10:35] LABS: CALCIUM 8.5 mg/dL (8.5-10.1); CREATININE 1.1 mg/dL (0.6-1.3); POTASSIUM 4.6 mmol/L (3.5-5.1)
--- NOTE | 2020-04-25 19:50 | NUR ---
PATIENT ARRIVED FROM PACU THIS EVENING. PATIENT SETTLED TO ROOM. PATIENT HAS HAD COMPLAINTS OF PAIN TREATED ADEQUATLEY WITH MEDICATION. PATIENT HAS DRESSINGS TO CHEST, C/D/I. PATIENT HAS JENY DRAINS X 3 WITH SANGUINOUS OUTPUT. PATIENT TOLERATING DIET. PATIENT DENIES ANY NEEDS AT THIS TIME. CALL LIGHT WITHIN REACH.
[2020-04-25 20:00] VITALS: BP 111/54
[2020-04-25 23:59] VITALS: BP 89/44
[2020-04-26 03:29] VITALS: BP 98/43
[2020-04-26 04:00] LABS: HEMATOCRIT 28.6 % (37.0-47.0); MCH 32.9 pg (26.0-34.0); MCV 96.8 fL (80.0-100.0); MPV 8.7 fl. (7.2-11.1); RBC 2.95 mil/uL (4.20-5.00); RDW-CV 13.4 % (10.5-14.5)
[2020-04-26 04:19] LABS: HEMOGLOBIN 9.7 gm/dL (12.0-15.0)
[2020-04-26 04:25] LABS: CALCIUM 8.4 mg/dL (8.5-10.1); CREATININE 1.1 mg/dL (0.6-1.3)
--- NOTE | 2020-04-26 06:31 | OP ---
[address] [address] OPERATIVE REPORT Name: LORNA MALCOLM Room: [address] Anahi Herndon#: [id number] Admission: 04/25/20 Attend Phys: Ronit Campbell MD Discharge: Date of : 55 Report #: [id number] THIS REPORT FOR: //name// cc: BHAKTI Friedman family physician/PCP BHAKTI Friedman family physician/PCP ~ CC: BHAKTI physician/PCP Ronit Campbell DATE OF SERVICE: 04/25/2020 PREOPERATIVE DIAGNOSIS: Recurrent left breast cancer, malignant neoplasm, upper outer quadrant, left female breast. POSTOPERATIVE DIAGNOSIS: Recurrent left breast cancer, malignant neoplasm, upper outer quadrant, left female breast. PROCEDURE: Right simple mastectomy, left modified radical mastectomy. SURGEON: Ronit Campbell MD BRAND DESIGNER: None. ANESTHESIA: General anesthesia. ESTIMATED BLOOD LOSS: 150 mL. COMPLICATIONS: None. SPECIMENS: Right breast, left breast and left axillary contents. FINDINGS: Intact and preserved thoracodorsal and long thoracic nerve. DISPOSITION: Stable to PACU. 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 MRI confirmed the primary lesion 2.7 cm. She underwent neoadjuvant chemotherapy. MRI did show treatment response and she underwent definitive surgery with a lumpectomy and sentinel node biopsy in 06/2018. She had imaging in 03/2020 which showed a new irregular soft tissue mass just posterior to her prior lumpectomy site. A biopsy on 04/03/2020 showed grade 3 metaplastic carcinoma typical of the previous primary with triple negative and Ki-67 of 40%. An MRI confirmed no suspicious nodes. The primary site was 1.[address] showed no evidence of metastatic disease. It was discussed that she had had no previous good response to chemotherapy and had a recurrence in a very short time period despite additional adjuvant therapies, [place] [address] OPERATIVE REPORT Name: LORNA MALCOLM Room: [address] Anahi Castillo.#: [id number] Admission: 04/25/20 Attend Phys: Ronti Campbell MD Discharge: Date of : 55 Report #: [id number] for mastectomy for the left side and she desired bilateral. We discussed that I would not recommend reconstruction given the aggressive nature of this tumor. At this point, we also discussed that we would attempt sentinel node biopsy, but it may fail due to her prior sentinel node biopsy; therefore, risks and benefits for bilateral simple mastectomy and left axillary sentinel lymph node biopsy, possible axillary dissection were discussed with the patient, delineated in the H and P and she agreed to proceed. We also discussed the MediPort as well and those risks were discussed. DESCRIPTION OF PROCEDURE: The patient was brought to the operating room after informed consent had been obtained. She had been taken to nuclear medicine prior to the case for injection with technetium 99 labeled sulfur colloid for the sentinel node portion of the case. The 5 mL of Lymphazurin blue was then injected in the intradermal and subdermal location in the upper outer periareolar region of the left breast. Attention was first turned for the MediPort. Bilateral arms were tucked at her side, a shoulder roll was placed and bilateral chest and neck were prepped and draped in normal sterile manner. I attempted a few times to access the right subclavian vein, I was unsuccessful and given that the main purpose of today's procedure was her bilateral mastectomy and she had just had a previous right sided subclavian MediPort and had just been removed, I elected to abort this procedure and have this performed by IR at a later date. Therefore, the patient's arms were untucked and placed at 90 degree angles. Shoulder rolls were removed and bilateral breasts were prepped and draped in normal sterile manner. The proposed skin incisions were marked out with a marking pen on both breasts with a marking pen. Attention was first turned to the right breast. The superior flap skin incision was incised with a knife. This was deepened into the subcutaneous tissues using the Bovie electrocautery. The Bovie electrocautery was used to create the superior mastectomy flap in the superficial mastectomy plane superiorly toward the clavicle, medially toward the sternal border and laterally toward the latissimus muscle. Once these borders have been delineated, attention was turned to the inferior flap. The skin incision was made with a knife. This was deepened into the subcutaneous tissues using the Bovie electrocautery and the Bovie electrocautery was used to create the inferior skin flap in the superficial mastectomy plane inferiorly toward the serratus muscle with the same medial and lateral borders. Once all borders have been delineated, the breast tissue was then removed from the underlying pectoralis muscle to include the pectoralis fascia in a superior to inferior and medial to lateral manner reflecting the breast tissue laterally. Once it was reflected laterally, the lateral attachments were divided with 3-0 silk ligatures. The breast tissue was then removed. It was labeled for orientation purposes and handed off the field. Attention was turned to the breast flap. It was copiously irrigated with normal saline. It was noted to be adequately hemostatic. A moistened laparotomy sponge was placed and attention was turned to the left hand side. Her skin incision on the left was made similar to the right. The incision was made with a knife. This was deepened into [place] [id number] OPERATIVE REPORT Name: LORNA MALCOLM Room: [address] Anahi Herndon#: [id number] Admission: 04/25/20 Attend Phys: Ronit Campbell MD Discharge: Date of : 55 Report #: [id number] electrocautery. A path was created in the superficial mastectomy plane superiorly toward the clavicle, medially toward the sternal border and laterally toward the latissimus muscle. Attention was then turned to the inferior skin flap. A skin incision was made with dissection inferiorly toward the serratus muscle. Breast tissue was then removed from the underlying pectoralis muscle to include the pectoralis fascia in a superior to inferior and medial to lateral manner as the breast tissue was reflected laterally. Vascular structures were divided laterally. The lateral attachments were divided with 3-0 silk ligatures and the breast tissue was removed fairly high in the axilla. The axillary tail of the breast was examined with the [place] probe to not note any specific blue nodes or radioactive nodes. There was no discrete area of radiotracer uptake noted in the axillary tail of the breast and there were no blue nodes noted in the axillary tail of the breast. I then explored using the [place] probe in the axilla, there were no additional blue nodes noted and no radiotracer noted. Therefore, I elected to proceed with full axillary dissection. The dissection was already fairly high, I could see. She had some variant axillary anatomy with a significantly dilated vein, which I thought was possibly the axillary vein. Therefore, dissection was somewhat labored, trying to delineate the axillary vein from an additional tissue. Dissection was performed with the superior border being the axillary vein, medial border being the chest wall and the thoracodorsal and long thoracic nerve and the lateral border being the thoracodorsal vein and nerve. I had difficulty in finding the thoracodorsal vein due to the aberrant anatomy. I thought that I had possibly ligated it at some portion of the procedure, although it had seemed very superficial for its usual location and I found no nerve associated with it. During additional dissection much deeper at more of the anticipated level, I was able to identify the thoracodorsal nerve, although its vascular supply was really minimal compared to usual; therefore, the thoracodorsal nerve bundle served as my lateral border of dissection and the chest wall and the long thoracic nerve were the medial border. Using the LigaSure device, I swept all tissue inferior of the axillary vein and between those two structures. Once completely removed, it was handed off as axillary contents. Both the thoracodorsal and long thoracic nerves were identified and preserved and tested multiple times throughout their course. The axilla was copiously irrigated with normal saline and was noted to be adequately hemostatic. I then proceeded with trimming of the skin on both breast flaps to get rid of redundant skin. The skin was excised with a knife and with the assistance of the Bovie electrocautery. I then placed 15-Armenian JENY drain x 2 on the left side, one in the axilla and one in the breast flap and one on the right side. These were secured to the skin with 3-0 nylon sutures. The deep dermal layers were then closed started on the right side with interrupted 3-0 Vicryl sutures and skin was closed with 4-0 Monocryl in a subcuticular manner. This process was repeated on the left. The wound was dressed with Steri-Strips, surgical fluffs and surgical bra. The drain sites were all dressed with Biopatch and a Tegaderm dressing. [place] [address] OPERATIVE REPORT Name: LORNA MALCOLM Room: [address] Katrina#: [id number] Admission: 04/25/20 Attend Phys: Ronit Campbell MD Discharge: Date of : 55 Report #: [id number] procedure well. Sponge, lap and needle counts were correct x 2 at the end of procedure. She was transferred to recovery in stable condition. <ELECTRONICALLY SIGNED> By: Ronit Campbell MD 04/26/20 0631 [id number] Campbell MD /nt
--- NOTE | 2020-04-26 07:30 | NUR ---
Alert and oriented x 4. Patient's mastectomy dressings had been dry and intact all of the shift. She had larger amount of drainage on the right side than the left. Dr Campbell came in and did feel like patient had a hematoma on the right and needed to go back into surgery. Consent was signed and surgery came and got her.
[2020-04-26 09:30] VITALS: BP 110/54
--- NOTE | 2020-04-26 09:30 | NUR ---
PT BACK TO ROOM FROM SURGERY. EVACUATION OF RIGHT BREAST HEMATOMA.
[2020-04-26 12:00] VITALS: BP 91/37
[2020-04-26 16:46] VITALS: BP 93/50
[2020-04-26 20:00] VITALS: BP 109/43
--- NOTE | 2020-04-26 20:38 | NUR ---
A&OX 4, PWD. DRESSING TO DM. BREAST C, D, & INTACT. PT GIVEN 1 HYDROCONE X 2 THIS SHIFT FOR PAIN MORE IN AXILLARY AREAS. DRAIN #1 ON RIGHT BLOODY 90 MLS OUT THIS SHIFT. DRAIN #2 30MLS OUT SEROUSAG. DRAINAGE THIS SHIFT AND DRAIN # 3 HAD 34MLS OUT THIS SHIFT. PT STILL WANTING TO GO HOME. IV RIGHT FA INTACT AND PATENT. PT DRINKING AND URINATING WELL. HAD 2000 MLS ORAL. WILL CONTINUE TO MONITOR.
[2020-04-26 23:00] VITALS: BP 137/59
[2020-04-27] MEDS ORDERED: NEURONTIN 300M300 M2 PO (00:06)
[2020-04-27] MEDS ORDERED: HYDROCODON-ACE1 EAC7 PO (00:06)
--- NOTE | 2020-04-27 00:14 | OP ---
[address] [address] OPERATIVE REPORT Name: YUNLORNA David Room: [address] Anahi Herndon#: [id number] Admission: 04/25/20 Attend Phys: Ronit Campbell MD Discharge: Date of : 55 Report #: [id number] THIS REPORT FOR: //name// cc: BHAKTI Friedman family physician/PCP BHAKTI Friedman family physician/PCP ~ CC: BHAKTI physician/PCP Ronit Campbell DATE OF SERVICE: 04/26/2020 PREOPERATIVE DIAGNOSIS: Right mastectomy flap hematoma. POSTOPERATIVE DIAGNOSIS: Right mastectomy flap hematoma. PROCEDURE: Evacuation of right mastectomy flap hematoma. SURGEON: Ronit Campbell MD EDITING CLERK: None. ANESTHESIA: General anesthesia. ESTIMATED BLOOD LOSS: 5 mL. COMPLICATIONS: None. FINDINGS: No obvious bleeding. Diffuse some sites of oozing noted. Small amount of clot in the breast flaps. DRAINS: Previously placed drain remained. IMPLANTS: None. DISPOSITION: Stable to PACU. INDICATIONS: The patient is a 65-year-old female taken for bilateral mastectomy yesterday for left breast cancer. She had obvious hematoma on the right side as compared to the left with active bloody drainage in her drain. My recommendation was for evacuation. Risks and benefits for this were discussed with the patient and delineated to include pain, bleeding, infection, scarring, and recurrence, need for additional procedures. She voiced understanding and agreed to proceed. DESCRIPTION OF PROCEDURE: The patient was brought to the operating room after informed consent had been obtained. She was placed under general anesthesia in the supine position with the right arm extended. The [place] [address] OPERATIVE REPORT Name: LORNA MALCOLM Room: [address] Katrina#: [id number] Admission: 04/25/20 Attend Phys: Ronit Campbell MD Discharge: Date of : 55 Report #: [id number] were prepped and draped in normal sterile manner after the Steri-Strips have been removed. The right mastectomy flap was incised with a knife and opened. There were some small amounts of clot that were removed and some oozing noted, although it was not significant. I cauterized any sites of oozing. I then copiously irrigated the wound and examined it carefully for any other sites of bleeding. I applied Lyubov powder to the entirety of the mastectomy flap. I then relayed the drain in place and reapproximated the breast flap with interrupted sutures of 3-0 Vicryl in the deep dermal layers and the skin with 4-0 Monocryl in a subcuticular manner. The wound was then redressed with Steri-Strips, surgical fluffs and a surgical bra with a Biopatch around the drain site. The patient tolerated the procedure well. Sponge, lap and needle counts were correct x 2 at the end of procedure. She was transferred to recovery in stable condition. <ELECTRONICALLY SIGNED> By: Ronit Campbell MD 04/27/20 0014 [id number] 2020Mintex Campbell MD /nt
[2020-04-27 00:21] VITALS: BP 137/59
--- NOTE | 2020-04-27 01:49 | NUR ---
Patient was alert and oriented x 4. She was up independently in the room with stand by. She voided a large amount,urine was more green colored this shift than blue. Vitals have been stable,O2 sat on roomair 98%. Measurements taken on all 3 JENY drains and charted. Dr Reyes was here around 0000 and she redressed her bilat mastectomy dressing. New kerlex gauze applied and acewraps was done to bilat mastectomy. Dr Reyes did write DC orders. Prescriptions were written and given to the patient and monographs were sent. DC papers given to the patient and she verbalized understanding. IV was discontinued and cottonball and tape placed. She got dressed and safety pins placed on the acewrap dressings to hold JENY drains in place. Drain care explained to the patient. Patient signed DC orders and her did pick her up at the door via SUV I took her to the exit via wheelchair and helped her into the vehicle and had her put her seatbelt on. She was discahrged at 0105.
--- NOTE | 2020-04-27 09:48 | NUR ---
PT. DISCHARGED TO HOME 04/26 PRIOR TO O.T. EVAL. PLEASE ORDER FURTHER O.T. SERVICES IF NEEDED.
--- NOTE | 2020-05-01 12:07 | PATH ---
[address] [address] PATHOLOGY RPT PROCEDURE Name: YUNLORNA Room: [address] Anahi Herndon#: [id number] Admission: 04/25/20 Date of : 55 Discharge: 04/27/20 Report #: [id number] Path Case #: [id number] [facility] Accession Number: [id number] . 01 Material submitted: . PART A: breast - RIGHT BREAST (PROPHYLATIC STITCH REINOSO AXILLARY TAIL). Modifiers: right PART B: breast - LEFT BREAST (STITCH REINOSO AXILLARY TAIL). Modifiers: left PART C: axillary tail of breast - LEFT AXILLARY CONTENTS. Modifiers: left . 01 Clinical history: . BREAST CANCER . 02 Diagnosis: A. Right breast: - Benign breast including skin with small incidental fibroadenoma, atypical lobular hyperplasia, usual ductal epithelial hyperplasia, medial calcification of blood vessels and luminal calcifications, negative for atypia. . B. 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 SEE COMMENT. . C. Left axillary contents: - Five benign lymph nodes (0/5). . (ANDREINA:delgado; 04/30/2020) . . Surgical Pathology Cancer Case Summary . INVASIVE CARCINOMA OF THE BREAST: Resection . Procedure ___ Total mastectomy (including nipple-sparing and skin-sparing mastectomy) . Specimen Laterality ___ Left . + Tumor Site + ___ Upper outer quadrant + ___ Clock position: 2 o'clock + ___ Distance from nipple: 6 cm, [place] [address] PATHOLOGY RPT PROCEDURE Name: LORNA MALCOLM Room: [address]#: [id number] Admission: 04/25/20 Date of : 55 Discharge: 04/27/20 Report #: [id number] Path Case #: [id number] Tumor Size ___ Greatest dimension of largest invasive focus >1 mm: 18 mm + Additional dimensions: 17 x 13 mm . Histologic Type ___ Metaplastic carcinoma . Histologic Grade ([place] Histologic Score) Glandular (Acinar)/Tubular Differentiation ___ Score 3 (<10% of tumor area forming glandular/tubular structures) . Nuclear Pleomorphism ___ Score 3 (vesicular nuclei, often with prominent nucleoli, exhibiting marked variation in size and shape, occasionally with very large and bizarre forms) . Mitotic Rate ___ Score 3 . Overall Grade ___ Grade 3 (scores of 8 or 9) . + Tumor Focality + ___ Single focus of invasive carcinoma . Ductal Carcinoma In Situ (DCIS) ___ Not identified . + Lobular Carcinoma In Situ (LCIS) + ___ Not identified . Tumor Extension ___ Skin is present and uninvolved . Nipple ___ DCIS does not involve the nipple epidermis . Skeletal Muscle ___ No skeletal muscle is present . Margins Invasive Carcinoma Margins ___ Uninvolved by invasive carcinoma Distance from closest margin: ___ 10 mm . + Specify closest margin: Superior anterior . [place] [address] PATHOLOGY RPT PROCEDURE Name: LORNA MALCOLM Room: [address] [id number] Admission: 04/25/20 Date of : 55 Discharge: 04/27/20 Report #: [id number] Path Case #: [id number] ___ Uninvolved by tumor cells Total Number of Lymph Nodes Examined: 5 . Treatment Effect in the Breast ___ No known presurgical therapy, see comment . Treatment Effect in the Lymph Nodes ___ Not applicable . + Lymphovascular Invasion + ___ Not identified . + Dermal Lymphovascular Invasion + ___ Not identified . . PATHOLOGIC STAGE CLASSIFICATION (pTNM, AJCC 8TH EDITION) Primary Tumor (pT) ___ pT1c:Tumor >10 mm but </= 20 mm in greatest dimension . Regional Lymph Nodes (pN) ___ pN0:No regional lymph node metastasis identified . + Ancillary Studies + ___ Breast Biomarker Testing Performed on Previous Biopsy + Testing Performed on A2 . + Estrogen Receptor (ER) + ___ Negative . + Progesterone Receptor (PgR) + ___ Positive 1% . + HER2 (by immunohistochemistry) + ___ Not over expressed (Score 1+) . + ___ Ki-67 percentage of positive nuclei: 40% . + Microcalcifications + ___ Present in non-neoplastic tissue [facility] 05/01/2020 1129 Local . 02 Comment: This patient had ductal carcinoma high-grade with suggestion of matrix production diagnosed on left breast tissue, 2:00, 6 cm from nipple image-guided core biopsy in February 2018 ([phone]) with breast tumor profile studies also performed (ER-0, CT-0, HER2 not over expressed/1+, Ki67 43%), and per operative report by [place] [address] PATHOLOGY RPT PROCEDURE Name: LORNA MALCOLM Room: [address] Anahi Herndon#: [id number] Admission: 04/25/20 Date of : 55 Discharge: 04/27/20 Report #: [id number] Path Case #: [id number] dated 12/23/2019, she received neoadjuvant chemotherapy with subsequent lumpectomy and left axillary sentinel nodes performed in June 2018 which showed metaplastic carcinoma spanning 12 mm in greatest dimension ([id number]). All surgical margins were free at that time. Repeat left breast 2:00, 6 cm from nipple image-guided core biopsies performed 04/03/2020 again showed ductal carcinoma with prominent matrix production high-grade. . The grossly described second stellate mass immediately lateral and slightly superior to the malignant mass is seen histologically to represent dense fibrosis with scattered hemosiderin deposition attributable to prior surgery. The site of the invasive tumor provided in the synoptic data is partially identified from information given from the most recent core biopsy. . (ANDREINA:knock up assembler; 04/30/2020) . 02 Electronically signed: . Alban Canchola MD, Pathologist NPI- [id number] . 01 Gross description: . A. The specimen is received in formalin, labeled "Lorna Malcolm, right breast prophylactic, stitch reinoso axillary tail". Received is a 1225 g mastectomy specimen oriented with a suture designating the axillary tail. The specimen measures 24.9 cm from medial to lateral, 19.1 cm from superior to inferior, and 7.2 cm from anterior to posterior. The anterior aspect displays an attached ellipse of skin measuring 25.2 x 11.5 cm with an eccentrically located everted nipple and areolar complex, measuring 1.5 x 1.2 and 4.3 x 3.1 cm, respectively. The specimen is inked as follows: Superior/anterior-blue, inferior/anterior-green, posterior-black. Sectioning reveals bright yellow fibrofatty cut surfaces throughout with no grossly distinct nodules or lesions. . Also received within the specimen container is a 78 g aggregate of pale frias skin and bright yellow fibrofatty tissue measuring 25.2 x 6.9 x 2.8 cm in aggregate dimensions. Sectioning reveals bright yellow fibrofatty cut surfaces with no grossly distinct nodules or lesions. The specimen is submitted representatively as follows: . A1 perpendicular section through nipple A2 upper outer quadrant A3 lower outer quadrant A4 lower inner quadrant A5 upper inner quadrant A6 central aspect of specimen posterior to nipple A7-A8 sales representative business courses sections of separately submitted skin [place] [address] PATHOLOGY RPT PROCEDURE Name: LORNA MALCOLM Room: [address] Anahi Herndon#: [id number] Admission: 04/25/20 Date of : 55 Discharge: 04/27/20 Report #: [id number] Path Case #: [id number] B. The specimen is received in formalin, labeled "Lorna Malcolm, left breast, stitch at axillary". Received is a 1321 g mastectomy specimen oriented with a suture designating the axillary aspect. The specimen measures 25.6 cm from medial to lateral, 19.8 cm from superior to inferior, and 7.5 cm from anterior to posterior. The anterior aspect displays an attached ellipse of skin measuring 24.8 x 10.7 cm with an eccentrically located everted nipple and areolar complex, measuring 1.8 x 1.3 and 5.1 x 3.8 cm, respectively. The epidermal surface also displays a moderate amount of residual blue dye. The specimen is inked as follows: Superior/anterior-blue, inferior/anterior-green, posterior-black. Sectioning reveals a well-demarcated white-frias mass, with previous biopsy changes identified, measuring 1.8 x 1.7 x 1.3 cm in greatest dimensions, which is 1.0 cm from the superior/anterior margin, and 2.1 cm from the posterior margin. This mass is located in the upper outer quadrant. Immediately lateral to the mass, and slightly superior, there is a focus of stellate fibrous tissue measuring 1.5 x 1.1 x 0.6 cm, which grossly approaches the posterior margin. Sectioning through the remainder of the specimen reveals bright yellow fibrofatty cut surfaces with no additional nodules or lesions noted grossly. . Also received within the specimen container is a 65 g segment of pale frias skin with attached underlying fibroadipose tissue measuring 24.1 x 4.2 x 2.0 cm in greatest dimensions. Sectioning reveals bright yellow, lobulated cut surfaces throughout with no grossly distinct nodules or lesions. The specimen is submitted representatively as follows: . B1 perpendicular section through nipple B2-B5 entire mass submitted from medial to lateral aspects B6-B9 entire focus of stellate fibrous tissue immediately lateral to mass, with closest margins submitted in cassette B9 B10 upper inner quadrant B11 lower inner quadrant B12 lower outer quadrant B13 upper outer quadrant B14-B15 sales representative business courses sections of separately submitted skin and soft tissue. . C. The specimen is received in formalin, labeled "Lorna Malcolm, left axillary contents". Received are multiple segments of yellow-frias lobulated tissue measuring 10.1 x 8.3 x 1.7 cm in aggregate dimensions. Dissection and palpation of the specimen reveals five possible lymph nodes ranging in size from 0.2 to 0.5 cm in maximum dimensions. The possible lymph nodes are submitted as follows: . C1 intact possible lymph nodes C2 one bisected possible lymph node. (CAA; 04/27/2020) QAC/QAC 04/27/2020 1858 Local . [address] [place] [address] PATHOLOGY RPT PROCEDURE Name: LORNA MALCOLM Room: [address] Anahi Herndon#: [id number] Admission: 04/25/20 Date of : 55 Discharge: 04/27/20 Report #: [id number] Path Case #: [id number] Pathologist provided ICD-10: C50.911, D24.1, N60.91 . 02 CPT . 596627, 399267, 099634 Specimen Comment: A courtesy copy of this report has been sent to [phone] Specimen Comment: Report sent to Performed at: 01 [facility] [address] [facility] [address], [place] [id number] MD Jan Stephenson MD Phone: [phone] Performed at: [address] [facility] [address] [place], [place] [id number] MD Alban Canchola MD Phone: [phone]
== END 2020-04-27 01:05 | disposition home or self-care (01) ==
LOC: M.TBA 08:33 → M.PRE 09:27 → M.ORTHSURG 19:32
PROVIDERS: ADMIT Surgery; ATTEND Surgery
DX: C50.412 Malignant neoplasm of upper-outer quadrant of left female breast (principal); N64.89 Other specified disorders of breast; Z79.899 Other long term (current) drug therapy

== ENCOUNTER → 2021-05-24 | Outpatient (CLI) | payer MEDICARE, OTHER ==
[~2021-05-24] MED LIST changes: +HYDROCODON-ACE1 EAC7 PO; +NEURONTIN 300M300 M2 PO
== END ==
LOC: M.ULTRA 08:40
PROVIDERS: ATTEND Surgery
DX: N63.20 Unspecified lump in the left breast, unspecified quadrant (principal)